=== PATIENT | female | born 1970 | race Caucasian/White ===

== ENCOUNTER 2021-02-26 12:30 | Outpatient (CLI) | payer BC, SELFPAY ==
--- NOTE | 2021-02-26 | ECHO_ITS ---
Patient Info Name: Karina Chavez Age: 51 years : 1970 Gender: Female Ht: 64 in Wt: 157 lbs BSA: 1.81 m2 HR: 77 bpm BP: 168 / 110 mmHg Exam Date: 02/26/2021 1:15 PM Exam Location: [facility] Pulmonary Patient Status: Outpatient Admit Date: 02/26/2021 Staff Ordering Physician: Heath, Bernie SERNA [employer] Strand: George Gil, BEAR, RT Attending Provider: HeathBernie NP Exam Type: CA echo doppler color flow Study Info Indications R00.2 - Palpitations Complete two-dimensional, color flow and Doppler transthoracic echocardiogram is performed. Strain analysis performed. Summary 1. Complete two-dimensional, color flow and Doppler transthoracic echocardiogram is performed. 2. Left ventricular systolic function is normal, estimated at 60-65%. 3. There is mildly increased left ventricular wall thickness. 4. The left ventricular diastolic function is normal. Left Ventricle Left ventricular chamber dimension is normal. Left ventricular systolic function is normal, estimated at 60-65%. There is mildly increased left ventricular wall thickness. Left ventricular septal wall motion is normal. The left ventricular diastolic function is normal. Global longitudinal strain is normal at -17 %. Right Ventricle Right ventricular chamber dimension is normal. Right ventricular systolic function is normal. Left Atria Left atrial chamber dimension is normal. Right Atria Right atrial chamber dimension is normal. Atrial Septum Intact interatrial septum visualized by color flow imaging. Aortic Valve The aortic valve is trileaflet. There is no aortic valve sclerosis. There is no aortic valve stenosis. There is no aortic valve regurgitation. Pulmonic Valve The pulmonic valve is normal. There is no pulmonic valve stenosis. There is no pulmonic regurgitation. Mitral Valve The mitral valve has normal leaflets. There is no mitral valve stenosis. There is no mitral valve regurgitation. Tricuspid Valve The tricuspid valve leaflets are normal. There is no significant tricuspid valve stenosis. There is no tricuspid valve regurgitation. Pericardium/Pleural The pericardium appears normal. There is no pericardial effusion. Inferior Vena Cava Normal inferior vena cava with <50% collapse upon inspiration consistent with elevated right atrial pressure, 10 mmHg. Aorta The aortic root size at the sinus of Valsalva is normal. The prox ascending aorta size is normal. Left Ventricular Outflow Tract Name Value Normal LVOT 2D LVOT Diameter 2.0 cm LVOT Doppler LVOT Peak Gradient 4 mmHg LVOT Mean Gradient 2 mmHg LVOT VTI 19 cm LVOT VTI/AV VTI Ratio 0.7 LVOT Stroke Volume 58 ml LVOT CO 4.0 l/min LVOT CI 2.2 l/min/m2 Mitral Valve Name Value Normal
== END 2021-02-26 12:31 | disposition home or self-care (01) ==
LOC: ANHCARD 12:39
PROVIDERS: PCP Nurse Practitioner Adult Health; Visit Provider Nurse Practitioner Adult Health
DX: R00.2 Palpitations (principal)
CPT/HCPCS: 93306

== ENCOUNTER 2021-04-16 08:06 | Outpatient (CLI) | payer BC, SELFPAY ==
--- NOTE | 2021-04-16 13:22 | WPDSIXMINUTE ---
Six Minute Walk Procedure Procedure Performed Pulmonary Stress Test (6 min walk) Six Minute Walk This is a 6 minute walk test. The test was performed and interpreted in accordance with the 2014 ERS/ATS task force guidelines. Findings: The patient's resting room air oxygen saturation measured by pulse oximetry was 93% and heart rate was 98 bpm. Patient ambulated for 610 meters and oxygen saturation remained 95 to 98%. Heart rate at the end of the study was 132 bpm. The patient did not qualify for supplemental oxygen at rest or with ambulation. There are no prior studies for comparison.
--- NOTE | 2021-04-16 13:26 | WPDPFTINT ---
PFT Procedure Performed PFT Procedure Performed Spirometry with Pre/Post Bronchodilator Plethysmography (Lung Vol) Diffusing Cap (DLCO) Flow Vol Loop PFT Interpretation This is a pulmonary function test with pre and post-bronchodilator spirometry, plethysmography and diffusing capacity. The test was performed and results interpreted in accordance with the 2019 and 2005 ATS/ERS Task Force guidelines respectively using the Global Lung Function Initiative-2012 reference equations. Patient demonstrated good effort and cooperation. Reproducibility criteria were met. The quality of the pre bronchodilator spirometry maneuver was Grade B and post bronchodilator spirometry maneuver was Grade B. Findings: Spirometry: The contour the inspiratory and expiratory flow tracing are normal. The pre bronchodilator FVC is 3.10 L, 90% predicted. The pre bronchodilator FEV1 is 2.56 L, 94% predicted. The FEV1: FVC ratio was 83%. The post bronchodilator FVC is 3.06 L, representing 1% decrease. The post bronchodilator FEV1 is 2.57 L, representing 1% increase. The post bronchodilator FEV1: FVC ratio was 84%. Plethysmography: The total lung capacity is 4.48 L, 88% predicted. Functional residual capacity is 1.86 L, 65% predicted. The residual volume is 1.39 L, 76% predicted. Diffusing capacity: The diffusion capacity unadjusted for hemoglobin is 14.2, 63% predicted. The diffusing capacity adjusted for alveolar volume is 3.79, 83% predicted. Impression: The spirometry is normal without evidence of an obstructive abnormality. There is no significant improvement after inhaling a single dose of albuterol. The lung volumes are normal. The diffusing capacity unadjusted for hemoglobin is mildly decreased and normalizes when adjusted for alveolar volume. There are no prior studies for comparison
== END 2021-04-16 08:07 | disposition home or self-care (01) ==
LOC: ANHPFT 08:07
PROVIDERS: PCP Nurse Practitioner Adult Health; Visit Provider Nurse Practitioner
DX: Z86.16 Personal history of COVID-19 (principal)
CPT/HCPCS: 94060; 94618; 94726; 94729

== ENCOUNTER 2021-05-01 14:51 | Outpatient (CLI) | payer BC, SELFPAY ==
--- NOTE | ~2021-05-01 | CT_ITS ---
EXAMINATION: CTA chest PE protocol DATE: 05/01/2021 15:28 INDICATION: Shortness of breath. TECHNIQUE: Computed tomography angiography (CTA) of the chest was performed with 100 mL Omnipaque-350 intravenous contrast timed to evaluate the pulmonary arteries. Coronal maximum intensity projection 3D-reconstructions were created by the technologist. Automated exposure control and iterative reconst ruction technique were employed. The dose-length product was 282.66 mGy-cm. COMPARISON: None. FINDINGS: The lung volumes are small. There are patchy groundglass opacities in all lobes. There is m ild atelectasis in the lower lobes. A calcified right lung nodule is consistent with old granulomatou s disease. No pleural effusion. The heart size is normal. No pericardial effusion. There is no pulmon masoud embolus. There is mild thoracic spondylosis. There is a benign bone island in T6 vertebral body. IMPRESSION: 1. No pulmonary embolus. 2. Diffuse lung disease, which may be atypical pneumonia such as COVID-19 pneumonia. The differential diagnosis includes nonspecific interstitial pneumonia (NSIP) and hypersensitivity pneumonitis. Reviewed, dictated and finalized at location A. [place] LAYER IMPRESSION: 1. No pulmonary embolus. 2. Diffuse lung disease, which may be atypical pneumonia such as COVID-19 pneum onia. The differential diagnosis includes nonspecific interstitial pneumonia (N SIP) and hypersensitivity pneumonitis.
[2021-05-01 15:21] LABS: Estimated Glomerular Filt Rate > 60
== END 2021-05-01 14:52 | disposition home or self-care (01) ==
LOC: ANHIMG 14:54
PROVIDERS: PCP Nurse Practitioner Adult Health; Visit Provider Nurse Practitioner
DX: R79.1 Abnormal coagulation profile (principal); J98.4 Other disorders of lung
CPT/HCPCS: 71275; Q9967

== ENCOUNTER 2021-08-17 02:42 | Day surgery (SDC) | payer BC, SELFPAY ==
[2021-07-31 12:16] VITALS: BMI 26.6
--- NOTE | 2021-08-17 11:14 | P.PNAN_ITS ---
Anes - Initial Pre Proc Eval Procedure: Operation Date: 08/17/21 13:30 Proposed Procedures p Esophagogastroduodenoscopy & Screening Colonoscopy - Dimitri Oconnor MD Date/Time: 08/17/21 11:14 Surgeon: Dimitri Barrientos MD Pre Op Diagnosis: neoplasm screening, peptic ulcer disease Patient Data Age: 51 Gender: F Height: 1.63 m Weight: 71.7 kg Allergies Allergy/AdvReac Type Severity Reaction Status Date / Time No Known Allergies Allergy Verified 08/19/21 10:49 Home Medications Medication Instructions Recorded Confirmed Type atorvastatin 40 mg tablet 40 mg PO DAILY 07/31/21 07/31/21 History levonorgestrel 0.15 mg-ethinyl 1 ea PO DAILY 07/31/21 07/31/21 History estradiol 30 mcg tablets,3 mos pack(91) lisinopril 20 mg tablet 20 mg PO DAILY 07/31/21 07/31/21 History metformin 500 mg tablet 500 mg PO BID 07/31/21 07/31/21 History metoprolol tartrate 25 mg tablet 25 mg PO DAILY 07/31/21 08/17/21 History omeprazole 40 mg capsule,delayed 40 mg PO DAILY 07/31/21 07/31/21 History release semaglutide 3 mg tablet (Rybelsus) 3 mg PO DAILY 07/31/21 07/31/21 History erythromycin 500 mg tablet See Rx Instructions .Route 08/19/21 Rx .COMPLEX #6 tabs neomycin 500 mg tablet See Rx Instructions .Route 08/19/21 Rx .COMPLEX #6 tabs Patient hx anesthesia problems: none Family hx anesthesia problems: none Results Review: All pre-operative results and documents have been reviewed as part of the pre- operative evaluation. 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 Informed Consent: The patient's anesthetic plan and its attendant risks and benefits were discussed with the patient/family/POA. Questions were solicited and answers provided to the satisfaction of the patient/family/POA.
[2021-08-17] MEDS: LACTATED RINGERS 1,000 ML 150 ML IV CONT (11:22)
[2021-08-17 11:23] VITALS: BP 145/80; PULSE 92; RESP 18; TEMP 36.4; O2SAT 100
[2021-08-17 11:23] LABS: Glucose Point of Care 128 mg/dl (65-105)
--- NOTE | 2021-08-17 11:49 | PM.HPGS ---
History of Present Illness History of Present Illness Consent: Risks, benefits, and alternatives have been discussed and questions answered. Patient agrees to proceed with procedure. Chief complaint: neoplasm screening, peptic ulcer disease Narrative: Karina Chavez is a 51 year old female who had bleeding ulcer last year when she was in the ventilator because of COVID, using omeprazole daily and denies any bleeding. She also will have her first screening colonoscopy Review of Systems Constitutional: Constitutional: Denies headache(s) and Denies weakness Eyes: Eyes: Denies blurry vision ENT: Reports Normal hearing present, Denies headache(s) and Denies neck pain Cardiovascular: Cardiovascular: Denies chest pain and Denies dyspnea Respiratory: Respiratory: Denies dyspnea Gastrointestinal: Gastrointestinal: Reports no additional gastrointestinal complaints Genitourinary: Genitourinary: Denies dysuria Musculoskeletal: Musculoskeletal: Denies neck pain Integumentary/Breasts: Skin/Breast: Denies dry skin Neurologic: Reports Normal hearing present, Denies headache(s) and Denies weakness Psychiatric: Psychiatric: Denies anxiety Endocrine: Endocrine: Denies change in body appearance Hematologic/Lymphatic: Hematologic/Lymphatic: Denies easy bleeding Allergic/Immunologic: Allergic/Immunologic: Denies urticaria PMFSH Past Medical History Medical History (Updated 08/17/21 @ 11:50 by Dimitri Barrientos MD) Colon cancer screening Diabetes type 2, controlled Hyperlipidemia Hypertension Migraine Peptic ulcer disease Social History Social History Smoking status: Never smoker Substance use: never Living arrangements: alone Spiritual care concerns: No Meds Home Medications and Allergies Home Medications Medication Instructions Recorded Confirmed Type atorvastatin 40 mg tablet 40 mg PO DAILY 07/31/21 07/31/21 History levonorgestrel 0.15 mg-ethinyl 1 ea PO DAILY 07/31/21 07/31/21 History estradiol 30 mcg tablets,3 mos pack(91) lisinopril 20 mg tablet 20 mg PO DAILY 07/31/21 07/31/21 History metformin 500 mg tablet 500 mg PO BID 07/31/21 07/31/21 History metoprolol tartrate 25 mg tablet 25 mg PO DAILY 07/31/21 08/17/21 History omeprazole 40 mg capsule,delayed 40 mg PO DAILY 07/31/21 07/31/21 History release semaglutide 3 mg tablet (Rybelsus) 3 mg PO DAILY 07/31/21 07/31/21 History Allergies Allergy/AdvReac Type Severity Reaction Status Date / Time No Known Allergies Allergy Verified 07/31/21 12:10 Vital Signs Vital Signs - 24 hr 08/17/21 11:23 Temperature 97.6 F Pulse Rate 92 Respiratory Rate 18 Blood Pressure 145/80 H Pulse Oximetry 100 Oxygen Delivery Room Air Exam Const: General: comfortable and no acute distress HENMT: General nose exam: Normal nares present Eyes: General: appearance normal, both eyes and all related structures Neck: Neck: no JVD Resp: Auscultation: clear to auscultation bilaterally Cardio: Rate: regular rate Rhythm: regular rhythm GI: Inspection: non-distended GI Palp: Yes Soft to palpation Skin: General skin exam: normal color Neuro: General: gait normal Speech: normal speech Extrem: General: normal to inspection Psych: Mental Status: mental status grossly normal Assessment and Plan Assessment and plan (1) Peptic ulcer disease: Code(s): K27.9 - Peptic ulcer, site unspecified, unspecified as acute or chronic, without hemorrhage or perforation Status: Acute Assessment and Plan: egd with bx, already on ppi (2) Colon cancer screening: Code(s): Z12.11 - Encounter for screening for malignant neoplasm of colon Status: Acute Assessment and Plan: colonoscopy
--- NOTE | 2021-08-17 12:03 | SUR.OPER ---
EGD start 1156 end 1159 Colon start 1203 end 1216.
[2021-08-17 12:22] VITALS: BP 114/69; PULSE 84; RESP 22; O2SAT 100
[2021-08-17 12:32] VITALS: BP 133/83; PULSE 76; RESP 20; O2SAT 100
[2021-08-17 12:42] VITALS: BP 143/90; PULSE 70; RESP 22; O2SAT 100
== END 2021-08-17 13:02 | disposition home or self-care (01) ==
PROVIDERS: PCP Nurse Practitioner Adult Health; Visit Provider Internal Medicine Gastroenterology
PROC: 0DJ08ZZ Inspection of Upper Intestinal Tract, Via Natural or Artificial Opening Endoscopic (ICD-10-PCS; CPT 43235; principal; 2021-08-17 13:30)
DX: Z12.11 Encounter for screening for malignant neoplasm of colon (principal); D12.2 Benign neoplasm of ascending colon; D12.3 Benign neoplasm of transverse colon; Z87.11 Personal history of peptic ulcer disease; K57.30 Diverticulosis of large intestine without perforation or abscess without bleeding; K64.8 Other hemorrhoids; K29.50 Unspecified chronic gastritis without bleeding; E11.9 Type 2 diabetes mellitus without complications; I10 Essential (primary) hypertension; E78.5 Hyperlipidemia, unspecified; Z79.84 Long term (current) use of oral hypoglycemic drugs
CPT/HCPCS: 45385; 45380; 45381; 43239; 82948; 88305; J2704; J7120

== ENCOUNTER 2021-11-17 08:00 | Outpatient (NON) | payer BC, SELFPAY | END 2021-11-17 08:01 | disposition home or self-care (01) | LOC: ANHLAB 11-18 13:08 | PROVIDERS: PCP Nurse Practitioner Adult Health; Visit Provider Surgery Plastic and Reconstructive Surgery | DX: D49.2 Neoplasm of unspecified behavior of bone, soft tissue, and skin (principal); R22.9 Localized swelling, mass and lump, unspecified | CPT/HCPCS: 88304; 88305; 88342 ==

== ENCOUNTER 2022-11-23 07:11 | Outpatient (CLI) | payer BC, SELFPAY ==
[2022-11-23 18:42] LABS: Alanine Aminotransferase 37 U/L (6-35); Albumin Level 4.2 g/dL (3.5-5.1); Alkaline Phosphatase 74 U/L (38-126); Anion Gap 8 mmol/L (8-16); Aspartate Amino Transferase 68 U/L (14-36); Bilirubin,Total 0.5 mg/dL (0.2-1.3); Blood Urea Nitrogen 12 mg/dL (7-17); Carbon Dioxide 27 mmol/L (22-30); Chloride 106 mmol/L (98-107); Cholesterol 118 mg/dL (0-200); Estimated Glomerular Filt Rate > 60; Glucose 99 mg/dL (65-110); HDL Direct 41 mg/dL; Potassium 4.1 mmol/L (3.4-5.0); Sodium 141 mmol/L (137-145); Triglycerides 157 mg/dL (<150)
[2022-11-23 18:53] LABS: LDL Cholesterol Direct 50 mg/dL
[2022-11-23 19:33] LABS: Hemoglobin A1C 6.1 % (<5.7)
[2022-11-23 19:43] LABS: Vitamin D 25 Hydroxy 45.4 ng/mL
[2022-11-23 20:11] LABS: MALB Creatinine Ratio 153.3 mg/g (0-30)
== END 2022-11-23 07:12 | disposition home or self-care (01) ==
LOC: ANHBWCLAB 07:13
PROVIDERS: PCP Nurse Practitioner Adult Health; Visit Provider Nurse Practitioner Adult Health
DX: E11.9 Type 2 diabetes mellitus without complications (principal); E55.9 Vitamin D deficiency, unspecified
CPT/HCPCS: 36415; 80053; 80061; 82043; 82306; 83036

== ENCOUNTER 2023-06-09 08:22 | Outpatient (CLI) | payer BC, SELFPAY ==
[2023-06-09 18:38] LABS: Hematocrit 40.1 % (37.0-47.0); Hemoglobin 11.9 g/dL (12.0-15.0); Mean Corpuscular HGB Conc 29.7 g/dl (32-36); Mean Corpuscular Hemoglobin 25.4 pg (26-34); Mean Corpuscular Volume 85.5 fl (80-100); Mean Platelet Volume 11.7 fl (7.4-10.4); Platelet Count Result 302 k/mm3 (150-375); Red Blood Count 4.69 M/mm3 (4.2-5.4); Red Cell Distribution Width 20.9 % (11.5-14.5); White Blood Count 7.6 K/mm3 (4.5-10.0)
[2023-06-09 19:12] LABS: Alanine Aminotransferase 33 U/L (6-35); Albumin Level 4.4 g/dL (3.5-5.1); Alkaline Phosphatase 91 U/L (38-126); Anion Gap 8 mmol/L (4-12); Aspartate Amino Transferase 53 U/L (14-36); Bilirubin,Total 0.6 mg/dL (0.2-1.3); Blood Urea Nitrogen 17 mg/dL (7-17); Calcium 9.5 mg/dL (8.4-10.2); Carbon Dioxide 24 mmol/L (22-30); Chloride 106 mmol/L (98-107); Cholesterol 147 mg/dL (0-200); Estimated Glomerular Filt Rate > 60; Glucose 101 mg/dL (65-110); HDL Direct 48 mg/dL; Potassium 4.3 mmol/L (3.4-5.0); Sodium 138 mmol/L (137-145); Triglycerides 150 mg/dL (<150)
[2023-06-09 19:23] LABS: LDL Cholesterol Direct 75 mg/dL
[2023-06-09 20:01] LABS: Vitamin D 25 Hydroxy 43.7 ng/mL
[2023-06-09 21:18] LABS: Creatinine Urine 185.1 mg/dL
[2023-06-09 21:20] LABS: MALB Creatinine Ratio 16.4 mg/g (0-30); Microalbumin Urine Random 30.3 mg/L (0-16.7)
== END 2023-06-09 08:23 | disposition home or self-care (01) ==
LOC: ANHBWCLAB 08:23
PROVIDERS: PCP Nurse Practitioner Adult Health; Visit Provider Nurse Practitioner Adult Health
DX: E11.9 Type 2 diabetes mellitus without complications (principal); E55.9 Vitamin D deficiency, unspecified
CPT/HCPCS: 36415; 80053; 80061; 82043; 82306; 83036; 85027

== ENCOUNTER 2023-12-13 08:04 | Outpatient (CLI) | payer BC, SELFPAY ==
[2023-12-13 19:32] LABS: Alanine Aminotransferase 40 U/L (6-35); Albumin Level 4.8 g/dL (3.5-5.1); Alkaline Phosphatase 98 U/L (38-126); Anion Gap 12 mmol/L (4-12); Aspartate Amino Transferase 64 U/L (14-36); Bilirubin,Total 0.7 mg/dL (0.2-1.3); Blood Urea Nitrogen 14 mg/dL (7-17); Carbon Dioxide 26 mmol/L (22-30); Chloride 102 mmol/L (98-107); Cholesterol 187 mg/dL (0-200); Estimated Glomerular Filt Rate > 60; Glucose 78 mg/dL (65-110); HDL Direct 59 mg/dL; Potassium 3.8 mmol/L (3.4-5.0); Sodium 140 mmol/L (137-145); Triglycerides 131 mg/dL (<150)
[2023-12-13 19:40] LABS: Vitamin D 25 Hydroxy 73.5 ng/mL
[2023-12-13 19:42] LABS: LDL Cholesterol Direct 81 mg/dL
[2023-12-13 20:17] LABS: Creatinine Urine 184.4 mg/dL
[2023-12-13 20:19] LABS: MALB Creatinine Ratio 7.6 mg/g (0-30); Microalbumin Urine Random 14.1 mg/L (0-16.7)
[2023-12-13 21:13] LABS: Hemoglobin A1C 5.9 % (<5.7)
== END 2023-12-13 08:05 | disposition home or self-care (01) ==
LOC: ANHBWCLAB 08:13
PROVIDERS: PCP Nurse Practitioner Adult Health; Visit Provider Nurse Practitioner Adult Health
DX: E11.9 Type 2 diabetes mellitus without complications (principal); E55.9 Vitamin D deficiency, unspecified
CPT/HCPCS: 36415; 80053; 80061; 82043; 82306; 82565; 83036

== ENCOUNTER 2024-02-27 00:21 | Day surgery (SDC) | payer BC, SELFPAY ==
[2024-02-10 11:59] VITALS: BMI 24.0
[2024-02-27 06:22] VITALS: BP 110/61; PULSE 102; RESP 16; TEMP 36.3; O2SAT 100
[2024-02-27] MEDS: LACTATED RINGERS 1,000 ML 150 ML IV CONT (06:32)
[2024-02-27 06:33] LABS: Glucose Point of Care 101 mg/dl (65-105)
--- NOTE | 2024-02-27 07:19 | WPDANESEPPF ---
Anes - Initial Pre Proc Eval Procedure: Operation Date: 02/27/24 07:30 Proposed Procedures p Screening Colonoscopy - Jose Trores DO Date/Time: 02/27/24 07:19 Surgeon: Jose Torres DO Pre Op Diagnosis: Screening for malignant neoplasm of colon Patient Data Age: 54 Gender: F Height: 1.63 m Weight: 62.7 kg Last Vital Signs Temp 36.3 C L 02/27/24 06:22 Pulse 102 H 02/27/24 06:22 Resp 16 02/27/24 06:22 BP 110/61 02/27/24 06:22 Pulse Ox 100 02/27/24 06:22 O2 Del Method Room Air 02/27/24 06:22 Allergies Allergy/AdvReac Type Severity Reaction Status Date / Time No Known Allergies Allergy Verified 02/27/24 06:18 Home Medications ?Medication ?Instructions ?Recorded ?Confirmed ?Type FreeStyle Lucrecia 2 sensors 09/02/22 02/10/24 History atorvastatin 40 mg tablet 40 mg PO DAILY #90 tabs 07/13/23 02/27/24 Rx metformin 500 mg tablet 500 mg PO BID #180 tabs 09/12/23 02/27/24 Rx tirzepatide 7.5 mg/0.5 mL 7.5 mg (0.5 mL) subcut WEEKLY #6 mL 09/19/23 02/27/24 Rx subcutaneous pen injector (Mounjaro) metoprolol tartrate 25 mg tablet 12.5 mg PO DAILY 12/13/23 02/27/24 History cholecalciferol (vitamin D3) 1,250 1,250 mcg PO WEEKLY #12 caps 01/17/24 02/27/24 Rx mcg (50,000 unit) capsule lisinopril 5 mg tablet See Rx Instructions .Route 02/20/24 02/27/24 Rx .COMPLEX #90 tabs Laboratory Tests 02/27/24 06:31 POC Capillary Glucose 101 mg/dl (65-105) Patient hx anesthesia problems: none Family hx anesthesia problems: none Results Review: All pre-operative results and documents have been reviewed as part of the pre-operative evaluation. [facility] Past Medical History Medical History (Updated 06/09/23 @ 08:23 by Bernie Joe APRN) Adenomatous colon polyp Colon cancer screening Peptic ulcer disease Migraine Diabetes type 2, controlled Hyperlipidemia Hypertension Surgical History Surgical History Hx of colonoscopy 08/17/2021 Family History Family History (Updated 09/02/22 @ 15:13 by Alva Peterson MA) Father Hypertension Heart disease Grandparent Heart disease Social History Social History (Updated 09/02/22 @ 15:13 by Alva Peterson MA) Smoking status: Never smoker Alcohol intake: current Alcohol use details: very rarely Substance use: never Substance use type: does not use Lack of Transportation: No Lack of Food: Never True Current Housing: I Have Housing Concerned About Future Housing: No Difficulty Paying Gas/Electric Bills: No Difficulty Paying for Meds: No Currently Unemployed: No Education: Associate Degree Difficulty w/ Childcare or Family Care: No Living arrangements: alone 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 Gender identity (if verbalized by the patient): Female Spiritual care concerns: No Agree to blood products: Yes Anes - Eval Final PreProcedure Day of Procedure 02/27/24 07:19 Patient weight: normal Heart: regular rate and rhythm Lungs: clear to auscultation and normal air movement Airway: Mallampati scale class II Neurological: alert and oriented Last oral intake: >/= 8 hours ASA classification: III Emergent: no Anesthetic plan: proceed Anesthesia type and monitoring: general GIVS and standard monitoring Results Review: All pre-operative results and documents have been reviewed as part of the pre-operative evaluation. Informed Consent: The patient's anesthetic plan and its attendant risks and benefits were discussed with the patient/family/POA. Questions were solicited and answers provided to the satisfaction of the patient/family/POA.
--- NOTE | 2024-02-27 07:28 | P.HP_ITS ---
H&P: HPI History of Present Illness Date/Time: 02/27/24 07:28 Chief Complaint: History of colon polyps Narrative: this is a 54-year-old woman who presents for colonoscopy. Her last colonoscopy was 1 year ago and was normal. She has a history of a large polyp 2 years ago that required a transverse colon resection. She denies any hematochezia or melena. She denies family history of colon cancer. Review of Systems Review of Systems: All systems reviewed & are unremarkable except as noted in HPI and below Constitutional: Constitutional: Denies chills, Denies fever(s), Denies headache(s) and Denies weight loss Eyes: Eyes: Denies change in vision ENT: Denies dizziness, Denies headache(s), Denies neck mass and Denies throat swelling Cardiovascular: Cardiovascular: Denies chest pain, Denies lightheadedness and Denies dyspnea Respiratory: Respiratory: Denies cough, Denies dyspnea and Denies wheezing Gastrointestinal: Gastrointestinal: Denies abdominal pain, Denies change in bowel habits, Denies nausea and Denies vomiting Genitourinary: Genitourinary: Denies hematuria and Denies dysuria Musculoskeletal: Musculoskeletal: Reports as per HPI Integumentary/Breasts: Skin/Breast: Reports as per HPI Neurologic: Denies dizziness and Denies headache(s) Allergic/Immunologic: Allergic/Immunologic: Denies throat swelling and Denies wheezing [facility] Past Medical History Medical History (Updated 02/27/24 @ 07:29 by Jose Torres DO) Adenomatous colon polyp Colon cancer screening Peptic ulcer disease Migraine Diabetes type 2, controlled Hyperlipidemia Hypertension Surgical History Surgical History Hx of colonoscopy 08/17/2021 Family History Family History (Updated 09/02/22 @ 15:13 by Alva Peterson MA) Father Hypertension Heart disease Grandparent Heart disease Social History Social History (Updated 09/02/22 @ 15:13 by Alva Peterson MA) Smoking status: Never smoker Alcohol intake: current Alcohol use details: very rarely Substance use: never Substance use type: does not use Lack of Transportation: No Lack of Food: Never True Current Housing: I Have Housing Concerned About Future Housing: No Difficulty Paying Gas/Electric Bills: No Difficulty Paying for Meds: No Currently Unemployed: No Education: Associate Degree Difficulty w/ Childcare or Family Care: No Living arrangements: alone 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 Gender identity (if verbalized by the patient): Female Spiritual care concerns: No Agree to blood products: Yes Meds Home Medications and Allergies Home Medications ?Medication ?Instructions ?Recorded ?Confirmed ?Type Derek Singer 2 sensors 09/02/22 02/10/24 History atorvastatin 40 mg tablet 40 mg PO DAILY #90 tabs 07/13/23 02/27/24 Rx metformin 500 mg tablet 500 mg PO BID #180 tabs 09/12/23 02/27/24 Rx tirzepatide 7.5 mg/0.5 mL 7.5 mg (0.5 mL) subcut WEEKLY #6 mL 09/19/23 02/27/24 Rx subcutaneous pen injector (Mounjaro) metoprolol tartrate 25 mg tablet 12.5 mg PO DAILY 12/13/23 02/27/24 History cholecalciferol (vitamin D3) 1,250 1,250 mcg PO WEEKLY #12 caps 01/17/24 02/27/24 Rx mcg (50,000 unit) capsule lisinopril 5 mg tablet See Rx Instructions .Route 02/20/24 02/27/24 Rx .COMPLEX #90 tabs Allergies Allergy/AdvReac Type Severity Reaction Status Date / Time No Known Allergies Allergy Verified 02/27/24 06:18 Vital Signs Vital Signs - 24 hr 02/27/24 06:22 Temperature 97.3 F L Pulse Rate 102 H Respiratory Rate 16 Blood Pressure 110/61 Pulse Oximetry 100 Oxygen Delivery Room Air Exam Const: General: no acute distress and alert Orientation/consciousness: patient oriented x3 HENMT: Head: normocephalic and atraumatic Ears: hearing grossly normal bilaterally Face/Nose/Sinus: Normal nares present Mouth: Yes Normal oral and palatal mucosa present Eyes: Periorbital: periorbital findings normal Sclera: sclerae normal EOM: EOMs intact bilaterally Neck: Neck: normal visual inspection, no lymphadenopathy and trachea midline Chest: Chest palpation & inspection: normal inspection of the chest Resp: Effort & Inspection: normal respiratory effort Auscultation: clear to auscultation bilaterally Cardio: Jugular venous distension: no JVD Rate: regular rate Rhythm: regular rhythm Heart sounds: S1 normal heart sound present and S2 normal heart sound present Peripheral pulses: Peripheral pulses 2+ throughout GI: Inspection: normal to inspection GI Palp: Yes Soft to palpation, No Tenderness to palpation present (GI), No Guarding due to palpation present (GI) and No Rebound tenderness present Percussion: Yes normal to percussion Auscultation: normal bowel sounds : General: Yes no CVA tenderness Back/Spine/Pelvis: Back: no CVA tenderness Neuro: General: patient oriented x3, no focal motor deficits and CN's II-XI intact bilaterally Cognition (Neuro): normal cognition Speech: normal speech Motor exam (neuro): 5/5 motor strength present throughout Extrem: General: capillary refill normal and no clubbing, cyanosis or edema Assessment and Plan Assessment and plan (1) Adenomatous colon polyp: Qualifiers: Colon location: transverse Qualified Code(s): D12.3 - Benign neoplasm of transverse colon Code(s): D12.6 - Benign neoplasm of colon, unspecified Status: Acute Assessment and Plan: I have recommended colonoscopy. I have discussed the procedure, risks, benefits, and alternatives. Questions were answered. Patient is agreeable to proceed.
[2024-02-27 07:45] VITALS: BP 107/58; PULSE 93; RESP 18; O2SAT 100
[2024-02-27 07:55] VITALS: BP 103/56; PULSE 92; RESP 18; O2SAT 100
[2024-02-27 08:03] LABS: Glucose Point of Care 86 mg/dl (65-105)
[2024-02-27 08:05] VITALS: BP 114/68; PULSE 81; RESP 18; O2SAT 100
== END 2024-02-27 08:16 | disposition home or self-care (01) ==
PROVIDERS: PCP Nurse Practitioner Adult Health; Visit Provider Surgery
PROC: 0DJD8ZZ Inspection of Lower Intestinal Tract, Via Natural or Artificial Opening Endoscopic (ICD-10-PCS; CPT 45378; principal; 2024-02-27 07:30)
DX: Z09 Encounter for follow-up examination after completed treatment for conditions other than malignant neoplasm (principal); K57.30 Diverticulosis of large intestine without perforation or abscess without bleeding; E11.9 Type 2 diabetes mellitus without complications; E78.5 Hyperlipidemia, unspecified; I10 Essential (primary) hypertension; Z79.84 Long term (current) use of oral hypoglycemic drugs; Z79.85 Long-term (current) use of injectable non-insulin antidiabetic drugs; Z90.49 Acquired absence of other specified parts of digestive tract; Z86.0100 Personal history of colon polyps, unspecified; Z82.49 Family history of ischemic heart disease and other diseases of the circulatory system
CPT/HCPCS: 45378; 82948; J2003; J2704; J7120

== ENCOUNTER 2024-05-14 07:28 | Outpatient (CLI) | payer BC, SELFPAY ==
--- NOTE | ~2024-05-14 | MM_ITS ---
EXAMINATION: MM screening hyun BI w billie HISTORY: Screening TECHNIQUE: Craniocaudal and mediolateral oblique 3-D tomosynthesis images were obtained and synthetic 2-D images were generated. CAD analysis was submitted and interpreted. COMPARISON: No prior mammogram is available for comparison at this institution. BREAST PARENCHYMAL COMPOSITION: Not dense: There are scattered areas of fibroglandular density. FINDINGS: There is no evidence of suspicious mass, calcification, or architectural distortion to sugg est malignancy in either breast. There has been no suspicious interval change. IMPRESSION: 1. No mammographic evidence of malignancy. 2. Recommend routine screening mammography in one year. BI-RADS Category 1: Negative Reviewed, dictated and finalized at location B.
--- OUTSIDE RECORDS SUMMARY | 2024-05-14 07:33 | XMS_ITS | Data Portability ---
Author Organization Marc Murrieta L LC ([facility]) Address [address] [address] Assessment Encounter Date Assessment Date Assessment LastModified by Organization Details LastModified Time 04/24/2024 04/24/2024 Assessment: The patient is due for a hemoglobin A1C test for assessment of glycemic control and ongoing diabetes management. The patient will benefit from hemoglobin A1C monitoring every 3 months. Plan: Order placed for an A1C test kit to be mailed to the patients' home. Once resulted, the hemoglobin A1C will be reviewed by a physician and shared with the patient via the patient portal. [email or web address] Not available 04/24/2024 09:17:16 Plan of Treatment Reminders Order Date Submit Date Provider Last Modified By Organization Details Last Modified Time Details Appointments None recorded. Lab hemoglobin A1C, fingerstic k 2024 025 [email or web address] [facility], [address] [place] [address], [address], 09:17:49 Referral None recorded. Procedures None recorded. Surgeries None recorded. Imaging None recorded. Medication Orders None recorded. Patient TargetsNo targets recorded. Patient Instructions Encounter Date Encounter Id Patient Instructions Last Modified By Organization Details Last Modified Time 04/24/2024 [id number] I have ordered your at-home A1C kit and it will be delivered directly to your home. Please follow the instructions included with the test kit to complete it. I will receive a copy of your results for review. You will be able to view your test results and my notes in the [facility] patient portal. [email or web address] Not available 04/24/2024 09:17:16 Reason for Referral None Reported. Medical Equipment None Reported. Vitals None Recorded Social History None recorded. Functional Status None recorded. Mental Status None recorded. Family History Nothing Reported. Medical History No medical history recorded. Gynecological HistoryNo gynecological history recorded. Obstetrics History GPAL:G 0 P 0 0 0 0 Past Encounters Encounter ID Performer Location Encounter Start Date Encounter Closed Date Diagnosis/Indication Diagnosis SNOMED-CT Code Diagnosis ICD10 Code Diagnosis Note [id number] ROCKY CHOW MD MAIN OFFICE -- [employer] [address] [address] 04/24/2024 09:17:10 04/24/2024 09:31:26 Type 2 diabetes mellitus 36816548 E11.9 Health Concerns Section Related Observation LastModified by Organization Detai ls LastModified Time None Recorded Concern Status LastModified by Organization Details LastModified Time None Recorded Advance Directives Directive None Recorded Payers Encounter Date Sequence Insurance Name Policy Number Policy Polo Covered Member ID Polo Member ID Guarantor Name 04/24/2024 1 Glad to Have You Karina Chavez [id number] Karina Chavez Notes Date Note Type Note Provider Name and Address Organization Details Recorded Time 04/24/2024 text/html Patient case was reviewed and linked to this encounter under Documents for Discussion. The patient is a {{PATIENTAGE 54#} } year old {{man woman*}} with {{type 2* type 1}} diabetes who is due for a hemoglobin A1c test. ROCKY CHOW MD [address] [place] [address],[address], [place], [address], [facility] - [employer] 04/24/2024 09:17:51 OBGyn Episode No OBEpisode recorded.
--- OUTSIDE RECORDS SUMMARY | 2024-05-14 07:33 | XMS_ITS | Clinical Summary ---
Author Organization [facility] Address [address] [facility] [place] [address] Care Team Providers Care Hot Wire Glass Tube Cutter Name Role Phone Ronda Ramachandran MD Unavailable [phone] Bernie JoeOTR REFRIGERATED CDL TRUCK DRIVER Primary Care Provider + Source Comments [facility],non-owned Affiliates and Associated Physician Practices is amultiple site organization consisting of ambulatory clinics and hospital sitesin [place], [place], [place] and [place]. This disclosure is being madepursuant to the Care Everywhere program and may not contain all information available regarding this patient. Last updated 17.[facility] Allergies No known active allergies Medications * Be aware that medications may not be up to date on this document. Alwaysverify current medications with the patient. Medication Sig Dispensed Refills Start Date End Date Status lisinopril (PRINIVIL; ZESTRIL) 20 MG tablet Take 20 mg by mouth once daily Active OtherIndications:mayte h control Reasons: control Active atorvastatin (LIPITOR) 40 MG tablet TAKE 1 TABLET DAILY 12/31/2019 Active ONETOUCH VERIO test strip 03/21/2019 Active levonorgestrel-ethiny l estradiol (SEASONALE; JOLESSA; QUASENSE) tablet 10/25/2019 Active metFORMIN (GLUCOPHAGE) 500 MG tabletIndications:Con trolled type 2 diabetes mellitus without complication, without long-term current use of insulin (HCC) Take 1 (one) tablet by mouth once daily 90 tablet 10/07/2020 Active metoprolol tartrate (LOPRESSOR) 25 MG tabletIndications:Ess ential hypertension Take 1 (one) tablet by mouth 2 times daily 180 tablet 02/26/2021 Active Active Problems Problem Noted Date Diagnosed Date COVID-19 12/10/2020 Anxiety 12/10/2020 Physical debility 12/10/2020 History of COVID-19 12/02/2020 Gastroesophageal reflux disease without esophagi tis 03/12/2020 Controlled type 2 diabetes m ellitus without complication, without long-term current use of insulin 01/02/2020 Essential hypertension 01/02/2020 Mixed hyperlipidemia 01/02/2020 Encounter for HCV screening test for low risk pa tient 01/02/2020 Encounter for screening breast examination 01/01 Preventative health care 01/02/2020 Family History Medical History Relation Name Comments CAD (Coronary Artery Disease) Maternal Grandfather CAD (Coronary Artery Disease) Maternal Grandmother Relation Name Status Comments Maternal Grandfather Maternal Grandmother Social History Tobacco Use Types Packs/Day Years Used Date Smoking Tobacco: Never Smokeless Tobacco: Never Sex and Gender Information Value Date Recorded Sex Assigned at Not on file Gender Identity Not on file Sexual Orientation Not on file Last Filed Vital Signs Vital Sign Reading Time Taken Comments Blood Pressure 132/82 12/10/2020 2:32 PM CDT Pulse 88 12/10/2020 2:32 PM CDT Temperature 37.2 C (98.9 F) 12/10/2020 2:32 PM CDT Respiratory Rate 17 10/16/2017 10:11 AM CDT Oxygen Saturation 97% 12/10/2020 2:32 PM CDT Inhaled Oxygen Concentration - - Weight 71.8 kg (158 lb 3.2 oz) 12/10/2020 2:32 P M CDT Height 162.6 cm (5' 4 ) 12/10/2020 2:32 PM CDT Body Mass Index 27.15 12/10/2020 2:32 PM CDT Plan of Treatment Health Maintenance Due Date Last Done Comments COLOGUARD (AGES 45-75) - COLON CA SCREENING 1969 COLON MONITORING 1969 COLONOSCOPY - COLON CA SCREENING 1969 CT COLONOGRAPHY - COLON CA SCREENING 1969 Colorectal Cancer Screening 1969 FIT - COLON CA SCREENING 1969 FLEX SIG - COLON CA SCREENING 1969 DTAP/TDAP/TD VACCINES (1 - Tdap) 02/01/1988 HEPATITIS B VACCINE (1 of 3 - 19+ 3-dose series) 02/01/1988 PNEUMOCOCCAL VACCINE 50+ (1 of 2 - PCV) 02/01/1988 PNEUMOCOCCAL VACCINE (1 of 2 - PCV) 02/01/1988 ZOSTER VACCINE (1 of 2) 2019 DIABETES RETINOPATHY SCREENING 01/02/2020 DIABETES-FOOT EXAM WITH MONOFILAMENT 01/02/2020 DIABETES-HGB A1C 06/17/2021 12/17/2020, 02/2020, 07/05/2020, Additional history exists DIABETES-SERUM CREATININE 12/17/20212020, 11/20/2020, 11/19/2020, Additional history exists PAP SMEAR 02/28/2022 02/28/2019 (Done Outside Per Patient) MAMMOGRAM 03/14/2022 03/14/2020 COVID-19 VACCINE (2023- season) 2023 INFLUENZA VACCINE (#1) 2023 DEPRESSION SCREENING 02/29/2024 DIABETES - URINE PROTEIN SCREENING 02/29/2024 HIV SCREENING Completed 12/02/2019 (Done Outside Per Patient) HEPATITIS C SCREENING Completed 01/02/2020 HIB VACCINE Aged Out No longer eligi ble based on patient's age to complete this topic HPV VACCINE Aged Out No longer eligi ble based on patient's age to complete this topic MENINGOCOCCAL (Group B) VACCINE SHARED DECISION-MAKING Aged Out No longer eligible based on patient's age to complete this topic MENINGOCOCCAL GROUPS A/C/Y/W VACCINE Aged Out No longer eligible based on patient's age to complete this topic Procedures Procedure Name Priority Date/Time Associated Diagnosis Comments COMPREHENSIVE METABOLIC PANEL 12/17/2020 1:13 PM CDT HEMOGLOBIN A1C 12/17/2020 1:13 PM CDT MAMMO BILAT SCREENING Routine 03/14/2020 8:00 AM HAT FINISHER Encounter for screening breast examination HEPATITIS C ANTIBODY Routine 01/02/2020 4:19 PM HAT FINISHER Encounter for HCV screening test for low risk patient from Last 3 Months or Most Recently Relevant to Health Maintenance Results * (ABNORMAL) HEMOGLOBIN A1C (12/17/2020 1:13 PM CDT) Hemoglobin A1c 6.4(H) 4.8 - 5.6 % [facility] INSURANCE BILL Comment: . Prediabetes: 5.7 - 6.4 Diabetes: >6.4 Glycemic control for adults with diabetes: <7.0 FASTING 12/17/2020 1:13 PM CDT 12/17/2020 Narrative Resulting Agency Comment [facility]: [facility] [address] [facility] [id number] Mili Estevez MD LAB - CHEMISTRY O RDERABLES [facility] INSURANCE BILL [address] [place] [address] * (ABNORMAL) COMPREHENSIVE METABOLIC PANEL (12/17/2020 1:13 PM CDT) Glucose 130(H) 65 - 99 mg/dL [facility] INSURANCE BILL BUN 11 6 - 24 mg/dL [facility] INSURANCE BILL Creatinine 0.53(L) 0.57 - 1.00 mg/dL [facility] INSURANCE BILL eGFR by MDRD 110 >59 mL/min/1. 73 [facility] INSURANCE BILL eGFR by MDRD 127 >59 mL/min/1. 73 [facility] INSURANCE BILL Comment: In accordance with recommendations from the NKF-ASN Task force, [facility] is in the process of updating its eGFR calculation to the 2020 CKD-EPI creatinine equation that estimates kidney function without a race variable. BUN/Creatinine Ratio 21 9 - 23 [facility] INSURANCE BILL Sodium 141 134 - 144 mmol/L [facility] INSURANCE BILL Potassium 4.1 3.5 - 5.2 mmol/L [facility] INSURANCE BILL Chloride 107(H) 96 - 106 mmol/L [facility] INSURANCE BILL CO2 20 20 - 29 mmol/L [facility] INSURANCE BILL Calcium 9.1 8.7 - 10.2 mg/dL [facility] INSURANCE BILL Protein Total 6.3 6.0 - 8.5 g/dL [facility] INSURANCE BILL Albumin 4.0 3.8 - 4.9 g/dL [facility] INSURANCE BILL Globulin Total 2.3 1.5 - 4.5 g/dL [facility] INSURANCE BILL Albumin/Globulin Ratio 1.7 1.2 - 2.2 [facility] INSURANCE BILL Bilirubin Total 0.3 0.0 - 1.2 mg/dL [facility] INSURANCE BILL Alkaline Phosphatase 56 44 - 121 IU/L [facility] INSURANCE BILL Comment:Please note refere nce interval change AST 14 0 - 40 IU/L [facility] INSURANCE BILL ALT 15 0 - 32 IU/L [facility] INSURANCE BILL Comment:FASTING 12/17/2020 1:13 PM CDT 12/17/2020 Narrative Resulting Agency Comment Lab [facility] performed [facility]: [facility] [address] [facility] [id number] Mili Estevez MD LAB - CHEMISTRY O RDERABLES [facility] INSURANCE BILL [address] [place] [address] * MAMMO BILAT SCREENING (03/14/2020 8:00 AM HAT FINISHER) Anatomical Region Laterality Modality Breast Bilateral Mammography 03/14/2020 12:2 7 PM HAT FINISHER Impressions 03/14/2020 12:32 PM HAT FINISHER IMPRESSION: No mammographic evidence of malignancy. No change from the prior. RECOMMENDATION: Screening mammography in one year, pending no interval breast concerns. Patient will be notified of the results by lay letter. BI-RADS CATEGORY 1: NEGATIVE. This report was electronically signed by MOR OLEARY on 03/14/2020 12:32 PM . Narrative 03/14/2020 12:32 PM HAT FINISHER EXAM: DIGITAL MAMMO BILAT SCREENING WITH 3-D AND WITH CAD DATE OF EXAM: 03/14/2020 HISTORY: Screening. RISK ASSESSMENT CALCULATION: Not performed due to COVID precautions. COMPARISON: 11/05/2016. TECHNIQUE: Tomosynthesis (3-D) and reconstructed C - view (synthetic 2-D) images acquired and reviewed in the bilateral craniocaudal and mediolateral oblique projections. Images reviewed with CAD. BREAST COMPOSITION: Category B: Scattered areas of fibroglandular density. FINDINGS: No suspicious microcalcifications, focal dominant masses, or areas of architectural distortion on mammography. No significant change from the prior. Ronda Ramachandran MD MAMMO ORDERABLES * HEPATITIS C ANTIBODY (01/02/2020 4:19 PM HAT FINISHER) Hepatitis C Antibody Non-react tete Non-reac tive 01/02/2020 5:10 PM HAT FINISHER [facility] Comment:Hepatitis C Antibody screen indicates no serologic evidence of past or current infection with Hepatitis C Virus. Patients with unexplained liver disease who are immunocompromised or suspected of having acute Hepatitis C infection may benefit from Nucleic Acid Test (ANCELMO) for Hepatitis C Viral RNA to confirm Hepatitis C status. Blood BLOOD SPECIMEN / Unknown Lab Venipuncture / Unknown 01/02/2020 4:19 PM HAT FINISHER 01/02/2020 4:25 PM HAT FINISHER Ronda Ramachandran MD LAB - CHEMISTRY O RDERABLES [facility] [address] [place] [address], [facility] [phone] from Last 3 Months or Most Recently Relevant to Health Maintenance Care Teams Hot Wire Glass Tube Cutter Relationship Specialty Start Date End Date Bernie Joe APRN-OTR REFRIGERATED CDL TRUCK DRIVER [address] [id number] PCP - General 08/24/21 Ronda Ramachandran MD [address] OF [facility] [place] [address] Resident - PCP Internal Medicine 07/21/20
--- OUTSIDE RECORDS SUMMARY | 2024-05-14 07:33 | XMS_ITS | Referral Summary ---
Author Organization [facility] Address [address] [place] [address] Care Team Providers Care Signal Person Name Role Phone Ronda Ramachandran MD Unavailable Bernie JoeMUNICIPAL FIREFIGHTER Primary Care Provider + Source Comments [facility],non-owned Affiliates and Associated Physician Practices is amultiple site organization consisting of ambulatory clinics and hospital sitesin [place], [place], [place] and [place]. This disclosure is being madepursuant to the Care Everywhere program and may not contain all information available regarding this patient. Last updated 17.[facility] Allergies No known active allergies Medications * [...] breast examination 01/01 Preventative health care 01/02/2020 Social History Tobacco Use Types Packs/Day Years [...] 12/10/2020 2:32 PM CDT Plan of Treatment Not on file Procedures Procedure Name Priority Date/Time Associated Diagnosis Comments COMPREHENSIVE METABOLIC PANEL 12/17/2020 1:13 PM CDT HEMOGLOBIN A1C 12/17/2020 1:13 PM CDT MAMMO BILAT SCREENING Routine 03/14/2020 8:00 AM BRICK STACKER Encounter for screening breast examination HEPATITIS C ANTIBODY Routine 01/02/2020 4:19 PM BRICK STACKER Encounter for HCV screening test for low [...] Resulting Agency Comment [facility] [address] [facility] [id number] Mili Estevez MD LAB - CHEMISTRY O RDERABLES [facility] INSURANCE BILL [address] [place] [address] * (ABNORMAL) COMPREHENSIVE METABOLIC PANEL (12/17/2020 1:13 [...] with recommendations from the NKF-ASN Task force, [facility] is in the process of updating its [...] Resulting Agency Comment Lab Testing performed at: [id number] [id number] Mili Estevez MD LAB - CHEMISTRY O RDERABLES [facility] INSURANCE BILL [address] [place] [address] * MAMMO BILAT SCREENING (03/14/2020 8:00 AM BRICK STACKER) Anatomical Region Laterality Modality Breast Bilateral Mammography 03/14/2020 12:2 7 PM BRICK STACKER Impressions 03/14/2020 12:32 PM BRICK STACKER IMPRESSION: No mammographic evidence of malignancy. No change from the prior. RECOMMENDATION: Screening mammography in one year, pending no interval breast concerns. Patient will be notified of the results by lay letter. BI-RADS CATEGORY 1: NEGATIVE. This report was electronically signed by MOR OLEARY on 03/14/2020 12:32 PM . Narrative 03/14/2020 12:32 PM BRICK STACKER EXAM: DIGITAL MAMMO BILAT SCREENING WITH 3-D [...] * HEPATITIS C ANTIBODY (01/02/2020 4:19 PM BRICK STACKER) Hepatitis C Antibody Non-react tete Non-reac tive 01/02/2020 5:10 PM BRICK STACKER [facility] Comment:Hepatitis C Antibody screen [...] Lab Venipuncture / Unknown 01/02/2020 4:19 PM BRICK STACKER 01/02/2020 4:25 PM BRICK STACKER Ronda Ramachandran MD LAB - CHEMISTRY O RDERABLES [facility] [address] [place] [id number], [facility] [phone] from Last 3 Months or Most Recently Relevant to Health Maintenance Care Teams Signal Person Relationship Specialty Start Date End Date Bernie Joe APRN-MUNICIPAL FIREFIGHTER [address] [address] PCP - General 08/24/21 Ronda Ramachandran MD [address] OF [facility] [place] [address] Resident - PCP Internal Medicine 07/21/20
--- OUTSIDE RECORDS SUMMARY | 2024-05-14 07:33 | XMS_ITS | Patient Health Summary ---
Author Organization [facility] Address [address] [place] [address] Care Team Providers Care Instructional Systems Designer Name Role Phone Ronda Ramachandran MD Unavailable [phone] Bernie JoeTECHNICIAN HELPER INSTRUMENT Primary Care Provider + Note from [facility],non-owned Affiliates and Associated Physician Practices is amultiple site organization consisting of ambulatory clinics and hospital sitesin [place], [place], [place] and [place]. This disclosure is being madepursuant to the Care Everywhere program and may not contain all information available regarding this patient. Last updated 17.[facility] Allergies No known active allergies Medications * Be aware that medications may not be up to date on this document. Alwaysverify current medications with the patient. * lisinopril (PRINIVIL; ZESTRIL) 20 MG tablet Take 20 mg by mouth once daily * Other Reasons: control * atorvastatin (LIPITOR) 40 MG tablet(Started 12/31/2019) TAKE 1 TABLET DAILY * ONETOUCH VERIO test strip(Started 03/21/2019) * levonorgestrel-ethinyl estradiol (SEASONALE; JOLESSA; QUASENSE) tablet(Started 10/25/2019) * metFORMIN (GLUCOPHAGE) 500 MG tablet(Started 10/07/2020) Take 1 (one) tablet by mouth once daily * metoprolol tartrate (LOPRESSOR) 25 MG tablet(Started 02/26/2021) Take 1 (one) tablet by mouth 2 times daily Active Problems Problem Noted Date Diagnosed Date [...] Mass Index 27.15 12/10/2020 2:32 PM CDT Procedures * COMPREHENSIVE METABOLIC PANEL(Performed 12/17/2020) * HEMOGLOBIN A1C(Performed 12/17/2020) * CBC W/O DIFFERENTIAL W/O PLATELET(Performed 12/17/2020) * CBC W AUTO DIFFERENTIAL(Performed 07/05/2020) * HEMOGLOBIN A1C(Performed 07/05/2020) Performed for Preventative health care * LIPID PROFILE(Performed 07/05/2020) Performed for Preventative health care * COMPREHENSIVE METABOLIC PANEL(Performed 07/05/2020) Performed for Preventative health care * MAMMO BILAT SCREENING(Performed 03/14/2020) Performed for Encounter for screening breast examination * HEPATITIS C ANTIBODY(Performed 01/02/2020) Performed for Encounter for HCV screening test for low risk patient * HEMOGLOBIN A1C - POINT OF CARE (AMB) [facility](Performed 01/02/2020) Performed for Controlled type 2 diabetes mellitus without complication, without long-term current use of insulin (HCC) Results * (ABNORMAL) HEMOGLOBIN A1C (12/17/2020 1:13 PM CDT) Only the most recent of2 resultswithin the time period is included. Hemoglobin A1c 6.4(H) 4.8 - 5.6 % [facility] INSURANCE BILL Comment: . Prediabetes: 5.7 - 6.4 Diabetes: >6.4 Glycemic control for adults with diabetes: <7.0 FASTING 12/17/2020 1:13 PM CDT 12/17/2020 Narrative Resulting Agency Comment Lab Testing performed at: [facility] [id number] Mili Estevez MD LAB - CHEMISTRY O RDERABLES [facility] INSURANCE BILL [address] [place] [address] * CBC W/O DIFFERENTIAL W/O PLATELET (12/17/2020 1:13 PM CDT) Pathologist [facility] WBC 6.8 3.4 - 10.8 x10E3/uL [facility] INSURANCE BILL RBC 3.95 3.77 - 5.28 x10E6/uL [facility] INSURANCE BILL Hemoglobin 11.6 11.1 - 15.9 g/dL [facility] INSURANCE BILL Hematocrit 35.8 34.0 - 46.6 % [facility] INSURANCE BILL MCV 91 79 - 97 fL [facility] INSURANCE BILL MCH 29.4 26.6 - 33.0 pg [facility] INSURANCE BILL MCHC 32.4 31.5 - 35.7 g/dL [facility] INSURANCE BILL RDW 12.9 11.7 - 15.4 % [facility] INSURANCE BILL nRBC NOT NEEDED [facility] INSURANCE BILL Comment: FASTING Ancillary determined the test is not needed. 12/17/2020 1:13 PM CDT 12/17/2020 Narrative Resulting Agency Comment Lab Testing performed at: [facility] [place] [address] [facility] [id number] Mili Estevez MD LAB - HEMATOLOGY ORDERABLES [facility] INSURANCE BILL [address] [place] [address] * (ABNORMAL) COMPREHENSIVE METABOLIC PANEL (12/17/2020 1:13 PM CDT) Only the most recent of2 resultswithin the time period is included. Glucose 130(H) 65 - 99 mg/dL [facility] [...] Resulting Agency Comment [facility] [address] [facility] [id number] Mili Estevez MD LAB - CHEMISTRY O RDERABLES Performing Organization Address City/[facility]/ZIP Co de Phone Number [facility] INSURANCE BILL [address] [place] [address] * CBC WITH DIFFERENTIAL (07/05/2020 7:51 AM CDT) White Blood Cell Count 8.2 3.8 - 10.8 Thousand/u L [facility] RBC 4.45 3.80 - 5.10 Million/uL [facility] Hemoglobin 13.4 11.7 - 15.5 g/dL [facility] Hematocrit 40.0 35.0 - 45.0 % [facility] MCV 89.9 80.0 - 100.0 fL [facility] MCH 30.1 27.0 - 33.0 pg [facility] MCHC 33.5 32.0 - 36.0 g/dL [facility] RDW 12.7 11.0 - 15.0 % [facility] Platelet Count 315 140 - 400 Thousand/u L [facility] MPV 11.7 7.5 - 12.5 fL [facility] Neutrophil Absolute 5076 1500 - 7800 cells/uL [facility] Lymphocytes Absolute 2321 850 - 3900 cells/uL [facility] Absolute Monocytes 599 200 - 950 cells/uL [facility] Eosinophils Absolute 164 15 - 500 cells/uL [facility] Basophils Absolute 41 0 - 200 cells/uL [facility] Granulocytes % 61.9 % [facility] Lymphocytes % 28.3 % [facility] Monocytes % 7.3 % [facility] Eosinophils % 2.0 % [facility] Basophils % 0.5 % [facility] Comment: Test Performed at: [facility] [employer] [address] [address] FRANK CORMIER DO,MPH 07/05/2020 7:51 AM CDT 07/05/2020 7:53 AM CDT Mili Estevez MD LAB - HEMATOLOGY ORDERABLES Performing Organization Address [facility]/ZIP Co de Phone Number [facility] [address] [place] [address] * (ABNORMAL) LIPID PROFILE (07/05/2020 7:51 AM CDT) Cholesterol 182 <200 mg/dL [facility] HDL Cholesterol 46(L) > OR = 50 mg/dL [facility] Triglycerides 204(H) <150 mg/dL [facility] Comment: If a non-fasting specimen was collected, consider repeat triglyceride testing on a fasting specimen if clinically indicated. Darwin et al. J. of Clin. Lipidol. 2015;9:129-169. LDL Calculated 104(H) mg/dL (calc) [facility] Comment: Reference range: <100 Desirable range <100 mg/dL for primary prevention; <70 mg/dL for patients with CHD or diabetic patients with > or = 2 CHD risk factors. LDL-C is now calculated using the Fito-Morelia calculation, which is a validated novel method providing better accuracy than the Friedewald equation in the estimation of LDL-C. Fito SS et al. JOJO. 2013;310(19): 0237-0209 (http://education.[employer]/faq/FIH967) CHOL/HDLC RATIO 4.0 <5.0 (calc) [facility] Non HDL Cholesterol 136(H) <130 mg/dL (calc) [facility] Comment: For patients with diabetes plus 1 major ASCVD risk factor, treating to a non-HDL-C goal of <100 mg/dL (LDL-C of <70 mg/dL) is considered a therapeutic option. Test Performed at: [facility] [address] [place] [address] FRANK CORMIER DO,MPH Blood BLOOD SPECIMEN / Unknown 07/05/2020 7:51 AM CDT 07/05/2020 7:53 AM CDT Mili Estevez MD LAB - CHEMISTRY O RDERABLES [facility] [address] [place] [address] * MAMMO BILAT SCREENING (03/14/2020 8:00 AM [facility]) Anatomical Region Laterality Modality Breast Bilateral Mammography 03/14/2020 12:2 7 PM [facility] Impressions 03/14/2020 12:32 PM [facility] IMPRESSION: No mammographic evidence of malignancy. No change from the prior. RECOMMENDATION: Screening mammography in one year, pending no interval breast concerns. Patient will be notified of the results by lay letter. BI-RADS CATEGORY 1: NEGATIVE. This report was electronically signed by MOR OLEARY on 03/14/2020 12:32 PM . Narrative 03/14/2020 12:32 PM [facility] EXAM: DIGITAL MAMMO BILAT SCREENING WITH 3-D [...] * HEPATITIS C ANTIBODY (01/02/2020 4:19 PM [facility]USHER) Pathologist [facility] Hepatitis C Antibody Non-react tete Non-reac tive 01/02/2020 5:10 PM [facility] FL[facility] Comment:Hepatitis C Antibody screen indicates no serologic evidence of past or current infection with Hepatitis C Virus. Patients with unexplained liver disease who are immunocompromised or suspected of having acute Hepatitis C infection may benefit from Nucleic Acid Test (ANCELMO) for Hepatitis C Viral RNA to confirm Hepatitis C status. Blood BLOOD SPECIMEN / Unknown Lab Venipuncture / Unknown 01/02/2020 4:19 PM [facility] 01/02/2020 4:25 PM [facility] Ronda Ramachandran MD LAB - CHEMISTRY O RDERABLES [facility] [address] [place] [address], [place] [phone] * HEMOGLOBIN A1C - POINT OF CARE (AMB) U (01/02/2020 3:44 PM [facility]ING FLUSHER) Pathologist [facility] Hemoglobin A1c POCT 7.3 [facility] BLOOD SPECIMEN / Unknown 01/02/2020 3:44 PM [facility] Ronda Ramachandran MD LAB - POINT OF CA RE ORDERABLES [facility] [address] [facility] [address] [facility] [place] [address] Care Teams Instructional Systems Designer Relationship Specialty Start Date End Date Bernie Joe APRN-TECHNICIAN HELPER INSTRUMENT [address] [address] PCP - General 08/24/21 Ronda Ramachandran MD [address] OF [facility] [address] Resident - PCP Internal Medicine 07/21/20
--- OUTSIDE RECORDS SUMMARY | 2024-05-14 07:33 | XMS_ITS | Data Portability ---
Author Organization [facility] [employer], Main Office Address [address] [place] [address] Assessment No assessment recorded. Plan of Treatment Reminders Order Date Submit Date Provider Last Modified By Organization Details Last Modified Time Details Appointments None recorded. Lab hemoglobin A1C, fingerstick 2022 [address] Alex [address], [place], [address], 11:23:39 Referral None recorded. Procedures None recorded. Surgeries None recorded. Imaging None recorded. Medication Orders None recorded. Patient TargetsNo targets recorded. Patient InstructionsNo instructions recorded. Reason for Referral None Reported. Results Created Date Observation Date Name Description Value Unit Range Abnormal Flag Note LastModifiedBy Organization Detail LastModifiedTime 03/04/1903/04/2022 hemog lobin A1C, finge rstic k HgbA1C 8 Not Available [facility] [address], [place], [address], 03/03/2022 17:06:33 06/02/19 23 06/01/2022 hemog lobin A1C, finge rstic k HgbA1C 6.8 Not Available [address] Alex [address], [place], [address], 06/01/2022 09:01:44 03/17/19 23 XR, hand, 3 or more view No observ ation record ed. [id number] [facility] [place] [address], [place], [address], 04/29/2022 00:29:27 Result Notes None recorded. Problems Name Problem SNOMED Code Status Onset Date Resolution Date Notes Provider Name and Address Organization Details Recorded Time Mass of thoracic vertebrae 37231381001 9108 Completed 202103/23/2021 Not Available [facility] 3 00:27:20 Anti-nucl ear factor detected 560861450 Active 2021 Not Available [facility] 3 00:27:21 Traction bronchiec tasis 37022467 Active 2021 Not Available [facility] 3 00:27:21 Dyspnea 762884120 Active 2021 Not Available [facility] 3 00:27:21 Impaired exercise tolerance 597433291 Active 2021 Not Available [facility] 3 00:27:21 Loss of hair 958195256 Active 2020 Not Available [facility] 3 00:27:21 Normal grief reaction 310919467 Active 2020 Not Available [facility] 3 00:27:21 History of SARS-CoV- 2 69563788129 2996626 Active 2020 Not Available [facility] 3 00:27:21 Chest pain 82262498 Active 2021 Not Available [facility] 3 00:27:22 Tachycard ia 7274247 Active 2021 Not Available [facility] 3 00:27:22 Hypertens tete disorder 82967014 Active 2020 Not Available [facility] 3 00:27:22 D-dimer above reference range 831247723 Active 2021 Not Available [facility] 3 00:27:22 Fibrosis of lung 90306964 Active 2021 Not Available [facility] 3 00:27:22 Hyperlipi demia 88831595 Active 2020 Not Available [facility] 3 00:27:22 Diabetes mellitus 15165949 Active 2020 Not Available [facility] 3 00:27:22 Fatigue 50206290 Active 2021 Not Available [facility] 3 00:27:23 Pneumonia caused by SARS-CoV- 2 10537088508 8107013 Active 2020 Not Available [facility] 3 00:27:23 Pain of left hand 08572019441 9103 Active 2022 Gladys Durbin RMVanna null, [facility] 3 14:51:23 Bilateral carpal tunnel syndrome 99830041659 654791 Active 2022 Gladys Durbin RMA null, [facility] 3 14:51:31 Trigger finger of left hand 18179090548 462914 Active 2022 Gladys Durbin RMA null, 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 Procedures Surgical History None recorded. Imaging Results Imaging Date Name Status LastModified by [facility] Details LastModified Time 03/17/2022 XR, hand, 3 or more view completed [id number] [facility] [employer] [address], [place], [address], 04/29/2022 00:29:27 Procedure Notes None recorded. Medical Equipment None Reported. Allergies No known drug allergies Medications Name Sig Start Date Stop Date Status Note LastModified by Organization Details LastModified Time atorvastati n 40 mg tablet TAKE 1 TABLET DAILY active Not Available Not Available No t Available metformin 500 mg tablet Take 1 tablet every day by oral route for 90 days. 07/01 completed Not Available Not Available Not Available erythromyci n 500 mg tablet 08/25 completed Not Available Not Available Not Available lisinopril 20 mg tablet Take 1 po daily active Not Available Not Available No t Available metronidazo le 500 mg tablet TAKE 1 TABLET BY MOUTH THREE TIMES DAILY FOR 1 DAY 03/03 completed Not Available Not Available Not Available omeprazole 40 mg capsule,del ayed release TAKE 1 CAPSULE BY MOUTH EVERY DAY 03/03 completed Not Available Not Available Not Available Kenalog 10 mg/mL suspension for injection In office injection administe red by the provider 06/[address] [facility]: 0003- [phone]- 20 Not Available Not Available Not Available lisinopril 5 mg tablet active Not Available Not Available Not Available mupirocin 2 % topical ointment APPLY TOPICALLY TO THE AFFECTED AREA TWICE DAILY FOR 5 DAYS 03/17 completed Not Available Not Available Not Available metoprolol succinate ER 25 mg tablet,exte nded release 24 hr TAKE 1 TABLET BY MOUTH EVERY DAY active Not Available Not Available No t Available ergocalcife rol (vitamin D2) 1,250 mcg (50,000 unit) capsule TAKE 1 CAPSULE BY MOUTH EVERY WEEK active Not Available Not Available No t Available neomycin 500 mg tablet 06/01 completed Not Available Not Available Not Available albuterol sulfate HFA 90 mcg/actuati on aerosol inhaler Inhale 2 puffs every 4-6 hours by inhalatio n route as needed for 30 days. active Not Available Not Available No t Available ondansetron 4 mg disintegrat ing tablet active Not Available Not Available N ot Available metformin ER 500 mg tablet,exte nded release 24 hr TAKE 1 TABLET TWICE A DAY active Not Available Not Available No t Available levonorgest rel 0.15 mg-ethinyl estradiol 30 mcg tablets,3 mos pack(91) Take 1 po daily 03/17 completed Not Available Not Available Not Available metoprolol tartrate 25 mg tablet Take 1 po daily 03/03 completed Not Available Not Available Not Available nitrofurant oin monohydrate /macrocryst als 100 mg capsule TAKE 1 CAPSULE BY MOUTH TWICE DAILY WITH THE MORNING AND EVENING MEAL FOR 5 DAYS 02/18 completed Not Available Not Available Not Available ropivacaine (PF) 5 mg/mL (0.5 %) injection solution Take 1 mg by injection route. 06/01 completed Not Available Not Available Not Available Plenvu 140 gram-9 gram-5.2 gram powder packs MIX AND DRINK DIRECTED active Not Available Not Available No t Available Rybelsus 7 mg tablet Take 1 tablet every day by oral route. active Not Available Not Available No t Available Rybelsus 3 mg tablet TAKE 1 TABLET BY MOUTH EVERY DAY active Not Available Not Available No t Available FreeStyle Lucrecia 2 Sensor kit USE DIRECTED active Not Available Not Available No t Available FreeStyle Lucrecia 2 [place] active Not Available Not Available Not Available Mounjaro 5 mg/0.5 mL subcutaneou s pen injector INJECT SUBCUTANE OUS 5MG ONCE A WEEK active Not Available Not Available No t Available Mounjaro 2.5 mg/0.5 mL subcutaneou s pen injector active Not Available Not Available Not Available Vitals Date Recorded Body mass index (BMI) Body height Oxygen saturation Oxygen saturation in Arterial blood by Pulse oximetry Heart rate Body temperature Body weight Systolic blood pressure Diastolic blood pressure Provider Name and Address Organization Details Last Updated DateTime 3 29.9 kg/m2 162.56 cm 98 % 98 % 86 /min 97.3 [degF] 61562.0 7 g 140 mm[Hg] 84 mm[Hg] Not Available [facility] 3 00:27:02 Date Recorded Body mass index (BMI) Body height Pain severity - 0-10 verbal numeric rating [Score] - Reported Body weight Provider Name and Address Organization Details Last Updated DateTime 03/17/2022 28.3 kg/m2 162.56 cm 5 75270.74 g Not Available [facility] 04/29/2022 00:27:04 Date Recorded Body height Body mass index (BMI) Body weight Pain severity - 0-10 verbal numeric rating [Score] - Reported Provider Name and Address Organization Details Last Updated DateTime 05/18/2022 162.56 cm 27.5 kg/m2 38982.78 g 1 Gladys Durbin [facility] [employer] [facility] 05/18/2022 14:49:06 Date Recorded Body height Body mass index (BMI) Body weight Body temperature Heart rate Oxygen saturation Oxygen saturation in Arterial blood by Pulse oximetry Systolic blood pressure Diastolic blood pressure Provider Name and Address Organization Details Last Updated DateTime 3 162.56 cm 29 kg/m2 43330.1 1 g 97.6 [degF] 81 /min 98 % 98 % 128 mm[Hg] 78 mm[Hg] Gisselle Zepeda [facility] [employer] [facility] 08:56:51 Date Recorded Body height Body mass index (BMI) Body weight Body temperature Heart rate Oxygen saturation Oxygen saturation in Arterial blood by Pulse oximetry Systolic blood pressure Diastolic blood pressure Provider Name and Address Organization Details Last Updated DateTime 3 162.56 cm 29.2 kg/m2 08436.7 g 96.6 [degF] 68 /min 99 % 99 % 120 mm[Hg] 68 mm[Hg] Sarah Santoro [facility] [employer] [facility] 3 10:03:13 Social History Question Answer Notes LastModified by Organizat ion Details LastModified Time Tobacco Smoking Status Never Smoker Not Available [facility] 04/29/2022 00:26:13 What Is Your Level Of Alcohol Consumption? None [email or web address] Information not available 08/25/2022 What Is Your Level Of Caffeine Consumption? Heavy [email or web address] Information not available 08/25/2022 In The 14 Days Before Symptom Onset, Have You Had Close Contact With A Laboratory-confir med COVID-19 While That Case Was Ill? No [id number] Information not available 04/29/2022 In The 14 Days Before Symptom Onset, Have You Had Close Contact With A Person Who Is Under Investigation For COVID-19 While That Person Was Ill? No [id number] Information not available 04/29/2022 What Type Of Diet Are You Following? CARBOHYDRATE MIGRATION.[id number] Information not available 04/29/2022 What Was The Date Of Your Most Recent Tobacco Screening? 03/17/2022 [id number] Information not available 04/29/2022 Do You Have Any Pets? Yes Dog Inside [id number] Information not available 04/29/2022 Do You Use Any Illicit Or Recreational Drugs? No MIGRATION.11296 [id number] Information not available 04/29/2022 Have You Recently Traveled Abroad? No MIGRATION.[id number] Information not available 04/29/2022 Do You Or Have You Ever Used Any Other Forms Of Tobacco Or Nicotine? No MIGRATION.48119 [id number] Information not available 04/29/2022 Sex: Unknown Functional Status Question Answer Note LastModified by Organizat ion Details LastModified Time What is your exercise level? Occasional [id number] Information not available 04/29/2022 Mental Status None recorded. Family History Relationship Description Onset Age of this Age Resolved Age Notes LastModified by Organization Details LastModified Time Father Hemochromato sis [id number] Not available 04/29/2022 00:26:28 Medical History No medical history recorded. Gynecological HistoryNo gynecological history recorded. Obstetrics History GPAL:G 0 P 0 0 0 0 Immunizations Vaccine Type Date Status Note Provider Nam e and Address Organization Details Recorded Time COVID-19, mRNA, LNP-S, PF, 30 mcg/0.3 mL dose 10/15/2020 completed Not Available [facility] 00:29:11 Past Encounters Encounter ID Performer Location Encounter Start Date Encounter Closed Date Diagnosis/Indication Diagnosis SNOMED-CT Code Diagnosis ICD10 Code Diagnosis Note [id number] [facility] [address] 02/18/2021 00:00:00 02/18/2021 11:16:34 [id number] [place] [address] 03/23/2021 00:00:00 03/23/2021 12:29:24 [id number] [facility] Pulmon[facility] [place] [address] [place] [address] 03/25/2021 00:00:00 03/25/2021 13:32:54 [id number] S_[facility] Pulmonolo [facility] [employer] [address] [place] [address] 04/28/2021 00:00:00 04/28/2021 12:45:25 [id number] S_[facility] [place] [address], [place] [address] 06/30/2021 00:00:00 06/30/2021 13:34:18 [id number] S_[facility] Pulmonolo [facility] [employer] [address] [place] [address] 08/25/2021 00:00:00 08/25/2021 14:32:34 [id number] [facility] [place] [address] [facility] [place] [address] 03/03/2022 00:00:00 03/03/2022 20:46:28 [id number] S_G Orth[facility] [employer] [address] [place] [address] 03/17/2022 00:00:00 03/17/2022 15:59:10 [id number] Gavin Sylvester MD [facility] Orth[facility] [employer] [address] [place] [address] 05/18/2022 14:46:20 05/18/2022 15:54:37 Pain of left hand 1535563959 63720 M79.642 Bilateral carpal tunnel syndrome 9943733531 3227006 G56.02 patient will continue another month with the night bracing we will see her back if she gets recurrent trigger finger or she starts developing the recurrent nocturnal paresthesi as the numbing in the tingling and does not respond to the bracing Trigger fi nger of left hand 6877305185 6898753 M65.342 [id number] Panchito Burkett MD [facility] [place] [address], [place] [address] 06/01/2022 08:49:38 06/01/2022 09:08:39 Type 2 diabetes mellitus without complication 993561736 E11.9 A1C was 6.8% Continue same meds. F/u in 3 months. [id number] Sophie Perez, [facility] Pulmonolo gy [place] [address] [place] [address] 08/25/2022 09:51:09 08/25/2022 10:24:38 Interstitial lung disease 711544450 J84.[address] chest at [facility], staff requestedR TC for follow up in 4-6 months Traction bronchiectasis 53825623 J47.[address] chest, flutter valve and [facility] clinic follow ups Chronic po st-COVID-19 syndrome 9402460525 U09.9 Intubated 10/29/20PF T 03/2021 normalSix minute walk testing normalIn light of persistent symptoms, we have discussed the uncertain recovery of COVID19.En couraged exercise as toleratedD iscussed S/S that require emergent evaluation Fatigue 27164320 R53.83 REINA positivePr evious referral to [facility] Concerns Section Related Observation LastModified by Organization Detai ls LastModified Time None Recorded Concern Status LastModified by Organization Details LastModified Time None Recorded Advance Directives Directive None Recorded Payers Encounter Date Sequence Insurance Name Policy Number Policy Polo Covered Member ID Polo Member ID Guarantor Name 05/18/2022 1 [place] [id number] Karina Chavez [id number] Karina Chavez 06/01/2022 1 [place] [id number] Karina Chavez [id number] Karina Chavez 08/25/2022 1 [place] [id number] Karina Chavez [id number] Karina Chavez Notes Date Note Type Note Provider Name and Address Organization Details Recorded Time 05/18/2022 text/html patient had a le ft ring trigger finger left carpal tunnel we did injection and splinting she is feeling a lot better now the triggering is better than numbing and tingling is better comes in today for follow-up Gavin Sylvester MD [address] [place] [address], [facility] [address], [place], [address], [place] [employer] 05/18/2022 17:12:06 06/01/2022 text/html Here for f/u of A1C check. She is on the 7 mg of rybelsus. No tingling or numbness of feet no calluses or sores. Panchito Burkett MD [address] [facility], [facility] [address], [place], [address], [facility] [employer] 06/01/2022 09:09:58 08/25/2022 text/html Ms Chavez present s today to follow up on ILD/bronchiectasis, [id number] dyspnea, referralsShaquilino has seen the ILD clinic and has follow up in October.Reports no new medications or treatments.Denies shortness of breath with dressing, bathing, stairs and ADLs.She does tell me she still has some dyspnea with mopping the floorsDenies cough, wheezing, waking at night due to respiratory symptoms.She has rare chest tightness, has seen cardiology for full evaluation.No hemoptysis, night sweats, enlarged lymph nodes, unintentional weight loss. Sophie Perez, SHERIE-BC [address] [facility], [facility] [address], [place], [address], [facility] [employer] 08/25/2022 10:59:42 OBGyn Episode No OBEpisode recorded.
--- OUTSIDE RECORDS SUMMARY | 2024-05-14 07:34 | XMS_ITS | Continuity of Care Document ---
Author Organization [facility] Address [address] [facility] [address] [place] [address] Phone Care Team Providers Care Commercial Housekeeper Name Role Phone Mares OD, Jessee Unavailable Unavailable Advance Directives Directive Yes / No Effective Date File Name No Information Encounters Encounter Description Practice Location Reason(s) For Visit Diagnoses Date Provider Providers Copied on Encounter [facility], [address], [place], [place], [id number], [place] tel:[phone] [facility] No Information [phone] Mares OD Jessee. [address] [facility] , [address], [place], [address], [place]. tel:[phone] Family History Family Member Type Diagnosis Age At Onset No Information Payers Payer name Insurance type Covered libertarian ID Authoriza tion(s) No Information Social History Type Description Quantity Date Captured Comments Sex Female Smoking Status No Information Chief Complaint And Reason For Visit No Information Reason For Referral Reason For Referral No Information History Of Present Illness Encounter Date Complaint History Of Prese nt Illness No Information Functional Status Date Functional Assessmen t No Information Instructions Date Instruction Additional Infor mation No Information Assessments Type Assessment Date No Information Patient Care Teams Name Effective Dates (start - stop) Status Members No Information
--- OUTSIDE RECORDS SUMMARY | 2024-05-14 07:34 | XMS_ITS | CONTINUITY OF CARE DOCUMENT ---
Author Name todd brooks Address Unknown Organization [facility] Address [address] [facility] [address] [place] [address] Phone [phone] Care Team Providers Care Casting Carrier Name Role Phone Kiya Morse MD Unavailable ANTONIO SORENSON Unavailable ANTONIO SORENSON Unavailable PROBLEMS Condition Status Date Provider Notes Chest pain active Armando Ahmedzai Fatigue active Armando Ahmedzai Diabetes mellitus, type 2 active Armando Ahmed staci Exposure to COVID-19 coronavirus active Dee z Ahmedzai Tachycardia active Armando Ahmedzai Hyperlipidemia active Armando Ahmedzai Essential hypertension active Armando Ahmedzai SOB, pulmonary fibrosis on C T 05/2021 active George Godinez Anti-nuclear factor positive completed 202 04/04/15 - George Godinez ENCOUNTERS Date Type Provider Location Encounter Diagnosis - In-person encounter Office Visit Kiya Morse MD [facility] - In-person encounter Office Visit Kiya Morse MD [facility] - In-person encounter Office Visit Kiya Morse MD [facility] Anti-nuclear factor positiveSOB, pulmonary fibrosis on CT 05/2021 - In-person encounter Office Visit Kiya Morse MD [facility] VITAL SIGNS Date Observation Value Provider Body Mass Index (Ratio) 25.06 kg/m2 Cole Morse MD blood pressure, diastolic 72 mm[Hg] Li nkLogic blood pressure, systolic 101 mm[Hg] Sonia kLogic blood pressure, cuff size regular Ja rret blood pressure, diastolic 72 mm[Hg] Ja rret blood pressure, systolic 101 mm[Hg] Jar ret pulse rate 77 /min Marcus respiratory rate E&M 14 /min Marcus oxygen saturation, oximetry 99 % Marcus weight E&M 146 [lb_av] Marcus y height E&M 64 [in_i] Marcus y Body Mass Index (Ratio) 30.04 kg/m2 Cole Morse MD blood pressure, cuff size regular Ri amrik Winter blood pressure, diastolic 84 mm[Hg] Ri amrik Winter blood pressure, systolic 132 mm[Hg] Catalino sandra Winter oxygen saturation, oximetry 97 % Chandni Winter respiratory rate E&M 16 /min Evelin rolle Winter weight E&M 175 [lb_av] Chandni White son height E&M 64 [in_i] Chandni White son Body Mass Index (Ratio) 27.80 kg/m2 Cole Morse MD blood pressure, diastolic 71 mm[Hg] Sa ra Carter blood pressure, systolic 132 mm[Hg] Graciela a Carter oxygen saturation, oximetry 98 % Sarah Carter respiratory rate E&M 20 /min Sarah Si ms pulse rate 79 /min Sarah Carter weight E&M 162 [lb_av] Sarah Carter height E&M 64 [in_i] Sarah Carter Body Mass Index (Ratio) 27.98 kg/m2 Cole Morse MD blood pressure, diastolic 85 mm[Hg] Li nkLogic blood pressure, systolic 134 mm[Hg] Sonia kLogic blood pressure, diastolic 85 mm[Hg] Ca therine [place] blood pressure, systolic 134 mm[Hg] Cat herine [place] oxygen saturation, oximetry 98 % Winter [place] respiratory rate E&M 16 /min Catheri ne Nicolas pulse rate 89 /min Winter Nicolas weight E&M 163 [lb_av] Winter Nicolas height E&M 64 [in_i] Winter [place] blood pressure, cuff size regular Ca therine Nicolas ALLERGIES No Known Drug Allergies HISTORY OF MEDICATION USE Medication Status Instructions Dates Provider Indications Com mai Solo 5 mg/0.5 mL pen injector active Armando Sung metoprolol succinate 25 mg tablet extended release 24 hr active TAKE 1 TABLET DAILY Armando Sung metoprolol succinate 25 mg tablet extended release 24 hr completed Take 1 tablet by mouth once a day - Chastity Felton omeprazole 40 mg capsule,delayed release(/EC) completed - Armando Sung metoprolol tartrate 25 mg tablet completed TAKE HALF PILL BID - Armando Sung nitrofurantoin monohyd/m-cryst 100 mg capsule completed - Armando Sung Rybelsus 3 mg tablet completed - Armando Sung levonorgestrel-eth inyl estrad 0.15 mg-30 mcg (91) tablets,dose pack,3 month completed - Armando Burdenzamacy lisinopril 5 mg tablet active Armando Susanjose metformin 500 mg tablet active Winter Nicolas atorvastatin 40 mg tablet active Winter [place] SOCIAL HISTORY Date Observation Value Provider smoking status Never smoker Armando Bertramzamacy social history E&M S moking History: Hilaria casey has never smoked. Armando Sung smoking status Never smoker Chandni Miri brownjaron social history reviewed E&M revi ewed - no changes required Kiya Morse MD number of grandchildren Kiya Godinez social history E&M S moking History: Hilaria casey has never smoked. George Godinez smoking status Never smoker George Godinez social history reviewed E&M revi ewed - no changes required Kiya Morse MD smoking status Never smoker Winter Hankinsi s social history reviewed E&M revi ewed - no changes required Armando Sung INSURANCE PROVIDERS Payer name Policy type / Coverage type Kendall red alliance party ID [id number] 1 ADVANCE DIRECTIVES Name Date DISCUSSED - NO DECISION MADE TREATMENT PLAN Date Name Performer [id number],S, Armando Susanmartinza i [id number],B, Armando Burdenza i [id number],S, Armando Susanmedza i [id number],S, Armando Susanmedza i [id number],S, Armando Susanmedza i [id number],B, Armando Susanmedza i [id number],S, Armando Davismedza i [id number],S, Armando Ahmedza i [id number],S, Armando Us i [id number],S, Armando Us i [id number],S, George Godinez [id number],S, George Godinez [id number],S, George Godinez [id number],S, George Godinez [id number],S, George Godinez [id number],S, George Godinez [id number],S, Armando Us i [id number],S, Armando Us i [id number],S, Armando Us i [id number],S, Armando Us i [id number],S, Armando Us i [id number],S, Armando Us i Cardiology: H er updated medication list for this problem includes: Lisinopril 5 Mg Tablet (Lisinopril) Metoprolol Succinate 25 Mg Tablet Extended Release 24 Hr (Metoprolol succinate) ..... Take 1 tablet daily Armando [place] Cardiology: H er updated medication list for this problem includes: Lisinopril 5 Mg Tablet (Lisinopril) Metoprolol Succinate 25 Mg Tablet Extended Release 24 Hr (Metoprolol succinate) ..... Take 1 tablet daily [facility] Cardiology: Her updated medication list for this problem includes: Lisinopril 5 Mg Tablet (Lisinopril) Mounjaro 5 Mg/0.5 Ml Pen Injector (Tirzepatide) Metformin 500 Mg Tablet (Metformin) [facility]: H er updated medication list for this problem includes: Lisinopril 5 Mg Tablet (Lisinopril) Metoprolol Succinate 25 Mg Tablet Extended Release 24 Hr (Metoprolol succinate) ..... Take 1 tablet daily BP today: 101/72 P rior BP: 132/84 (03/03/2022) Armando Sung Cardiology: H er updated medication list for this problem includes: Atorvastatin 40 Mg Tablet (Atorvastatin) Armando Davismedzai Cardiology Armando Usi Cardiology Armando Burdenzai Cardiology Armando Burdenzamacy Cardiology Armando Burdenzamacy Cardiology Armando Burdenzai Telehealth Armando Sung Telehealth Armando Sung Telehealth Armando Sung Telehealth Armando Sung Telehealth Armando Sung Cardiology [facility] [place] [place] [place] [place] [place] [place] Cardiology Armando Burdenzai Cardiology Armando Burdenzamacy Cardiology Armando Sung Cardiology Armando Sung Cardiology Armando Burdenzamacy Cardiology Armando Sung Date Name Monitor - Telemetry (Mobile Cardiac) HISTORY OF PROCEDURES Procedure Date Procedure Name Provider Procedure Notes S tatus EKG Kiya Morse MD completed EKG Kiya Morse MD completed
== END 2024-05-14 07:29 | disposition home or self-care (01) ==
LOC: ANHIMG 07:30
PROVIDERS: PCP Nurse Practitioner Adult Health; Visit Provider Nurse Practitioner Adult Health
DX: Z12.31 Encounter for screening mammogram for malignant neoplasm of breast (principal)
CPT/HCPCS: 77063; 77067

== ENCOUNTER 2024-06-13 07:50 | Outpatient (CLI) | payer BC, SELFPAY ==
--- OUTSIDE RECORDS SUMMARY | 2024-06-13 07:55 | XMS_ITS | Referral Summary ---
Author Organization [facility] Address [facility] [place] [address] Care Team Providers Care Link Trainer Maintenance Man Name Role Phone Bernie Joe NP Primary Care Provider [phone] David Padilla MD Unavailable [phone] Allergies No known active allergies Medications metFORMIN (GLUCOPHAGE) 500 mg tablet Take 1 tablet (500 mg total) by mouth 2 (two) times a day with meals 2 Active lisinopriL (PRINIVIL,ZESTRIL) 20 mg tablet Take 2.5 mg by mouth daily 2 Active metoprolol XL (TOPROL-XL) 25 mg extended release tablet Take 0.5 tablets (12.5 mg total) by mouth daily Active atorvastatin (LIPITOR) 40 mg tablet Take 1 tablet (40 mg total) by mouth nightly Active ergocalciferol (VITAMIN D) 50,000 unit capsule Take 1 capsule (50,000 Units total) by mouth 3 Active ondansetron ODT (ZOFRAN-ODT) 4 mg disintegrating tablet 3 Active Plenvu 140-9-5.2 gram powder in packet, sequential MIX AND DRINK DIRECTED 3 Active Mounjaro 5 mg/0.5 mL pen injector 3 Active Active Problems Problem Noted Date Diagnosed Date COVID-19 10/06/2021 Assessment & Plan (10/29/2021 2:43 PM CDT): Scheduled follow-up at [facility] post COVID, acute lung injury. 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 Looks great. Absolutely tragic circumstances regarding her diagnosis of COVID, her 's passing etcetera. Normal bedside exam. Assessment & Plan (10/06/2021 1:20 PM CDT): Recovered from COVID, acute lung injury requiring intubation, mechanical ventilation. Treated with Decadron, remdesivir, baricitinib. tragically . She is not required oxygen. Normal bedside exam. Did not require anticoagulation for venous thromboembolism. Preoperative evaluation of a medical condition to rule out surgical contraindications (TAR required) 10/06/2021 Assessment & Plan (10/29/2021 2:43 PM CDT): Uneventful recovery from Colorectal surgery. Looks great. Apparently not malignant. Assessment & Plan (10/06/2021 1:22 PM CDT): By report, likely chronic appearing post COVID changes on CT, residual of acute lung injury/ARDS. Has not required home oxygen. Well preserved lung function. No immediate contraindication to colorectal surgery. That having been said, postop pulmonary complications could include atelectasis, aspiration, bronchospasm, delayed weaning, infection, increased lung water, venous thromboembolism, barotrauma etcetera. No additional diagnostic testing needed. 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 More than three times a week 10/13/2021 How often do you get togethe r with friends or relatives? More than three times a week 10/13/2021 How often do you attend chur or latter day services? More than 4 times per year 10/13/2021 Do you belong to any clubs o r organizations such as muslim groups, unions, fraternal or athletic groups, or school groups? Yes 10/13/2021 How often do you attend meet ings of the clubs or organizations you belong to? More than 4 times per year 10/13/2021 Are you , , di vorced, , never , or living with a partner? 10/13/2021 AUDIT-C Answer Date Recorded Q1: How often do you have a drink containing alcohol? Monthly or less 10/01/2021 Q2: How many drinks containi ng alcohol do you have on a typical day when you are drinking? Patient does not drink Q3: How often do you have si x or more drinks on one occasion? Never 10/01/2021 Overall Financial Resource Strain (CARDIA) Answe r Date Recorded How hard is it for you to pa y for the very basics like food, housing, medical care, and heating? Not hard at all 10/13/2021 Hunger Vital Sign Answer Date Recorded Within the past 12 months, y ou worried that your food would run out before you got the money to buy more. Never true 10/14/19 22 Within the past 12 months, t he food you bought just didn't last and you didn't have money to get more. Never true 10/13/2021 PRAPARE - Transportation Answer Date Re corded In the past 12 months, has l ack of transportation kept you from medical appointments or from getting medications? No 09/28 In the past 12 months, has l ack of transportation kept you from meetings, work, or from getting things needed for daily living? No 10/13/2021 Housing Stability Vital Sign Answer Felix e Recorded In the last 12 months, was t here a time when you were not able to pay the mortgage or rent on time? No 10/13/2021 In the last 12 months, how many places have you lived? 1 10/13/2021 In the last 12 months, was t here a time when you did not have a steady place to sleep or slept in a correction (including now)? No 10/13/2021 Comments Unknown Sex and Gender Information Value Date Recorded Sex Assigned at Not on file Legal Sex Female 12:18 PM CDT Gender Identity Not on file Sexual Orientation Not on file Last Filed Vital Signs Vital Sign Reading Time Taken Comments Blood Pressure 101/73 11/04/2023 8:18 AM CDT Pulse 72 11/04/2023 8:18 AM CDT Temperature 36.6 C (97.8 F) 11/04/2023 8:18 AM CDT Respiratory Rate 18 11/04/2023 8:18 AM CDT Oxygen Saturation 99% 11/04/2023 8:18 AM CDT Inhaled Oxygen Concentration - - Weight 64 kg (141 lb) 11/04/2023 8:18 AM CDT Height 160 cm (5' 3 ) 11/04/2023 8:18 AM CDT Body Mass Index 24.98 11/04/2023 8:18 AM CDT Plan of Treatment Not on file Procedures Procedure Name Priority Date/Time Associated Diagnosis Comments EGFR Routine 10/13/2021 5:17 AM CDT HEMOGLOBIN A1C Routine 10/01/2021 3:29 PM CDT Preop testing SCREENING MAMMOGRAM 2D BILATERAL Routine 11/05/2016 12:00 AM CDT from Last 3 Months or Most Recently Relevant to Health Maintenance Results * eGFR (10/13/2021 5:17 AM CDT) eGFR 105 mL/min/1. 73 m2 [facility] Comment: Interpretive Data Reference Interval Normal >/= 90 mL/min/1.73m2 Mildly decreased* 60 - 89 mL/min/1.73m2 Mildly to moderately decreased 45 - 59 mL/min/1.73m2 Moderately to severely decreased 30 - 44 mL/min/1.73m2 Severely decreased 15 - 29 mL/min/1.73m2 Kidney Failure < 15 mL/min/1.73m2 *Relative to young adult level Estimated glomerular filtration rate is determined by the 2020 CKD-EPI equation recommended by the National Kidney Foundation (A Unifying Approach to GFR Estimation: Recommendations of the NKF-ASK Task Force on Reassessing the Inclusion of Race in Diagnosing Kidney Disease, JASN 2020). The CKD-EPI equation should not be used for patients with unstable renal function and has not been validated in children and those over 70. Current interpretive data was last reviewed 2020. Blood 10/13/2021 5:17 AM CDT 10/13/2021 5:58 AM CDT us David Padilla MD LAB BLOOD ORDERABLES Fin al Result Performing Organization Address [facility] Co de Phone Number [facility] [address] [place] [address] * (ABNORMAL) Hemoglobin A1c (10/01/2021 3:29 PM CDT) Hgb A1C 6.8(H) 4.0 - 5.6 % [facility] Estimated Average Glucose 148 mg/dL [facility] Comment: The ADA recommends reporting an estimated Average Glucose (eAG) with all Hemoglobin A1c results using the equation derived from a study of 507 normal and diabetic adults. Minority populations were underrepresented and children were not included. (Diabetes Care 31:0167-7581, 2007). The eAG is not equivalent to a fasting glucose. Blood 10/01/2021 3:29 PM CDT 10/01/2021 3:29 PM CDT us Lucie Contreras NP LAB BLOOD ORDERABLES Fi nal Result Performing Organization Address [facility] Co de Phone Number [facility] [address] [place] [address] * Screening Mammogram 2D Bilateral (11/05/2016 12:00 AM CDT) Anatomical Region Laterality Modality Breast Bilateral Mammography 11/05/2016 5:36 PM CDT Narrative 11/05/2016 5:36 PM CDT - SCREENING MAMM BI BILATERAL DIGITAL SCREENING MAMMOGRAM WITH CAD: 11/05/2016 CLINICAL: Routine screening. Routine checkup. Patient has no complaints. Comparison is made to exams dated: 07/24/2008 and 01/25/2007 [facility]. There are scattered fibroglandular elements in both breasts. Current study was also evaluated with a Computer Aided Detection (CAD) system. No significant masses, calcifications, or other findings are seen in either breast. There has been no significant interval change. IMPRESSION: NEGATIVE There is no mammographic evidence of malignancy. A 1 year screening mammogram is recommended. The patient will be contacted by letter. La Dias M.D. crossword puzzle maker/penrad:11/11/2016 07:36:57 copy to: Pari Garcia, ph: [phone], fax: [phone] letter sent: Normal Exam Mammogram BI-RADS: 1 Negative Radiologist: LA DIAS Attending: LUCIANO JACKSON Requesting: LUCIANO JACKSON Requesting Requesting ID: [id number] Attending Attending ID: [id number] Completed Time: 11/05/2016 12:36 AM Dictated Time: N/A Transcribed Time: 11/11/2016 08:22 AM Signed by: LA DIAS on 11/11/2016 08:22 AM Report To 1 ID: [id number] Report To 1 Name: PARI GARCIA Report To 1 FAX: Report To 2 ID: Report To 2 Name: , Report To 2 FAX: Report To 3 ID: Report To 3 Name: , Report To 3 FAX: NextGen Order #: Procedure Note Miscellaneous, Not In File / Provider, MD Yonathan - 11/11/2016 - SCREENING MAMM BI BILATERAL DIGITAL SCREENING MAMMOGRAM WITH CAD: 11/05/2016 CLINICAL: Routine screening. Routine checkup. Patient has no complaints. Comparison is made to exams dated: 07/24/2008 and 01/25/2007 [facility]. There are scattered fibroglandular elements in both breasts. Current study was also evaluated with a Computer Aided Detection (CAD) system. No significant masses, calcifications, or other findings are seen in either breast. There has been no significant interval change. IMPRESSION: NEGATIVE There is no mammographic evidence of malignancy. A 1 year screening mammogram is recommended. The patient will be contacted by letter. La Dias M.D. crossword puzzle maker/penrad:11/11/2016 07:36:57 copy to: Pari Garcia, ph: [phone], fax: [phone] letter sent: Normal Exam Mammogram BI-RADS: 1 Negative Radiologist: LA DIAS Attending: LUCIANO JACKSON Requesting: LUCIANO JACKSON Requesting Requesting ID: [id number] Attending Attending ID: [id number] Completed Time: 11/05/2016 12:36 AM Dictated Time: N/A Transcribed Time: 11/11/2016 08:22 AM Signed by: LA DIAS on 11/11/2016 08:22 AM Report To 1 ID: [id number] Report To 1 Name: PARI GARCIA Report To 1 FAX: Report To 2 ID: Report To 2 Name: , Report To 2 FAX: Report To 3 ID: Report To 3 Name: , Report To 3 FAX: NextGen Order #: Luciano Jackson MD IMG MAMMO PROCEDURES Edited Re sult - Final from Last 3 Months or Most Recently Relevant to Health Maintenance Insurance [employer] For more information, please contact: [phone] * Full Code (Latest Code Status on File) Date Activated Date Inactivated Comments 10/12/2021 12:50 PM 10/14/2021 7:37 PM Care Teams Link Trainer Maintenance Man Relationship Specialty Start Date End Date Bernie Joe NP [address] [place] [address] [place] [address] PCP - General Nurse Practitioner 07/02/21 David Padilla MD [address] [place] [address] [place] [address] Consulting Physician Colon and Rectal Surgery 10/14/21
--- OUTSIDE RECORDS SUMMARY | 2024-06-13 07:55 | XMS_ITS | Clinical Summary ---
Author Organization [facility] Address [address] [place] [address] Care Team Providers Care Hydropulper Operator Name Role Phone Bernie Joe NP Primary Care Provider [phone] David Padilla MD Unavailable [phone] Allergies No known active allergies Medications metFORMIN [...] (10/29/2021 2:43 PM CDT): Scheduled follow-up at [facility] post COVID, acute lung injury. Participating in [...] (hyperlipidemia) 07/02/2021 Diabetes mellitus 02/18/2021 Pulmonary fibrosis Medical History Medical History Date Comments HTN (hypertension) HLD (hyperlipidemia) DM (diabetes mellitus) (HCC) History of COVID-19 10/2020 patient was hospitalized and on a ventilator for 2 weeks Neoplasm of transverse colon Family History Medical History Relation Name Comments Heart disease Father angent or Father Relation Name Status Comments Father Mother Alive Social History Tobacco Use Types Packs/Day Years [...] 10/13/2021 How often do you attend chur ch or zoroastrianism services? More than 4 times per year 10/13/2021 Do you belong to any clubs o r organizations such as methodist groups, unions, fraternal or athletic groups, or [...] place to sleep or slept in a snf (including now)? No 10/13/2021 Comments Unknown Sex and Gender Information Value Date Recorded Sex Assigned at Not on file Legal Sex Female 12:18 PM CDT Gender Identity Not on file Sexual Orientation Not on file Obstetrics History Last Filed Vital Signs Vital Sign Reading [...] 11/04/2023 8:18 AM CDT Plan of Treatment Health Maintenance Due Date Last Done Comments Albumin Creatinine Ratio, Urine 1969 Cervical Cancer Screening 1969 Colon Cancer Screening-Colonoscopy 1969 Depression Screening 1969 Hepatitis C Screening 1969 Dilated Eye Exam 1969 Foot Exam 1969 Lipid Panel 1969 DTaP/Tdap/Td Vaccine (1 - Tdap) 02/01/1980 Hepatitis B Screening 1987 Regular Well Visit/Exam 18-64 1987 Pneumococcal vaccine <65 (1 of 2 - PCV) 02/01/1988 Zoster Vaccine (1 of 2) 2019 Breast Cancer Screening-Mammogram 03/14/2021 021, 11/05/2016 Hemoglobin A1C 04/03/2022 10/01/2021, 10, 07/05/2020 eGFR 10/13/2022 10/13/2021, 10/01/2021 Covid-19 Vaccine ( - season) 2023 Influenza Vaccine (#1) 2023 Procedures Procedure Name Priority Date/Time Associated Diagnosis Comments EGFR Routine 10/13/2021 5:17 AM CDT HEMOGLOBIN A1C Routine 10/01/2021 3:29 PM CDT Preop testing SCREENING MAMMOGRAM 2D BILATERAL Routine 11/05/2016 12:00 AM CDT from Last 3 Months or Most Recently Relevant to Health Maintenance Results * eGFR (10/13/2021 5:17 AM CDT) eGFR 105 mL/min/1. 73 m2 [facility] Comment: Interpretive Data Reference Interval Normal >/= [...] AM CDT 10/13/2021 5:58 AM CDT us Dvaid Padilla MD LAB BLOOD ORDERABLES Fin al Result [facility] [address] Department [place] [address] * (ABNORMAL) Hemoglobin A1c (10/01/2021 3:29 PM CDT) Hgb A1C 6.8(H) 4.0 - 5.6 % [facility] Estimated Average Glucose 148 mg/dL [facility] Comment: The ADA recommends reporting an estimated Average Glucose (eAG) with all Hemoglobin A1c results using the equation derived from a study of 507 normal and diabetic adults. Minority populations were underrepresented and children were not included. (Diabetes Care 31:6167-0160, 2008). The eAG is not equivalent to a fasting glucose. Blood 10/01/2021 3:29 PM CDT 10/01/2021 3:29 PM CDT us Lucie Contreras NP LAB BLOOD ORDERABLES Fi nal Result [facility] [address] Department [place] [address] * Screening Mammogram 2D Bilateral (11/05/2016 12:00 AM CDT) Anatomical Region Laterality Modality Breast Bilateral Mammography 11/05/2016 5:36 PM CDT Narrative 11/05/2016 5:36 PM CDT - SCREENING MAMM BI BILATERAL DIGITAL SCREENING MAMMOGRAM WITH CAD: 11/05/2016 CLINICAL: Routine screening. Routine checkup. Patient has no complaints. Comparison is made to exams dated: 07/24/2008 and 01/25/[address] [facility]. There are scattered fibroglandular elements in both breasts. Current study was also evaluated with a Computer Aided Detection (CAD) system. No significant masses, calcifications, or other findings are seen in either breast. There has been no significant interval change. IMPRESSION: NEGATIVE There is no mammographic evidence of malignancy. A 1 year screening mammogram is recommended. The patient will be contacted by letter. Davida Dias M.D., cro/delmis:11/11/2016 07:36:57 copy to: Pari Garcia, ph: [phone], fax: [phone] letter sent: Normal Exam Mammogram BI-RADS: 1 Negative Radiologist: DAVIDA DIAS Attending: LUCIANO JACSKON Requesting: LUCIANO JACKSON Requesting Requesting ID: [id number] Attending Attending ID: [id number] Completed Time: 11/05/2016 12:36 AM Dictated Time: N/A Transcribed Time: 11/11/2016 08:22 AM Signed by: DAVIDA DIAS on 11/11/2016 08:22 AM Report To 1 ID: [id number] Report To 1 Name: PARI GARCIA Report [...] made to exams dated: 07/24/2008 and 01/25/[address] [facility]. There are scattered fibroglandular elements in both breasts. Current study was also evaluated with a Computer Aided Detection (CAD) system. No significant masses, calcifications, or other findings are seen in either breast. There has been no significant interval change. IMPRESSION: NEGATIVE There is no mammographic evidence of malignancy. A 1 year screening mammogram is recommended. The patient will be contacted by letter. Davida Dias M.D. [facility]/penrad:11/11/2016 07:36:57 copy to: Pari Radha, ph: [phone], fax: [phone] letter sent: Normal Exam Mammogram BI-RADS: 1 Negative Radiologist: DAVIDA DIAS Attending: LUCIANO JACKSON Requesting: LUCIANO JACKSON Requesting Requesting ID: [id number] Attending Attending ID: [id number] Completed Time: 11/05/2016 12:36 AM Dictated Time: N/A Transcribed Time: 11/11/2016 08:22 AM Signed by: DAVIDA DIAS on 11/11/2016 08:22 AM Report To 1 ID: [id number] Report To 1 Name: RADHAPARI Report To 1 FAX: Report To 2 ID: Report To 2 Name: , Report To 2 FAX: Report To 3 ID: Report To 3 Name: , Report To 3 FAX: NextGen Order #: Luciano Jackson MD IMG MAMMO PROCEDURES Edited Re sult - Final from Last 3 Months or Most Recently Relevant to Health Maintenance Insurance [employer] O[employer] Member Subscriber Plan / Payer (Ef fective 2020-Present) Name:Karina Chavez Relation to Subscriber:Self Name:Karina Chavez Payer ID:[id number] (NAIC) Type:[employer] Address: [address] [place] [address] [employer] O[employer] Member Subscriber Plan / Payer (Ef fective 2020-Present) Name:Karina Chavez Relation to Subscriber:Self Name:Karina Chavez Payer ID:[id number] (NAIC) Type:[employer] Address: [address] [place] [address] [employer] OOS Member Subscriber Plan / Payer (Ef fective 2020-Present) Name:Karina Chavez Relation to Subscriber:Self Name:Karina Chavez Payer ID:[id number] (NAIC) Type:[employer] Address: [facility] [address] [place] [id number] Advance Directives For more information, please contact: [phone] * Full Code (Latest Code Status on File) Date Activated Date Inactivated Comments 10/12/2021 12:50 PM 10/14/2021 7:37 PM Care Teams Hydropulper Operator Relationship Specialty Start Date End Date Bernie Joe NP [address] [place] [address] [place] [address] PCP - General Nurse Practitioner 07/02/21 David Padilla MD [address] [place] [address] [place] [address] Consulting Physician Colon and Rectal Surgery 10/14/21
--- OUTSIDE RECORDS SUMMARY | 2024-06-13 07:55 | XMS_ITS | CONTINUITY OF CARE DOCUMENT ---
Author Name todd brooks Address Unknown Organization [facility] Address [address] [facility] [address] [place] [address] Phone [phone] Care Team Providers Care Best Worker Name Role Phone Kiya Morse MD Unavailable ANTONIO SORENSON Unavailable [phone] ANTONIO SORENSON Unavailable [phone] PROBLEMS Condition Status Date Provider Notes Chest pain active Armando Ahmedzai Fatigue active Armando Ahmedzai Diabetes mellitus, type 2 active Armando Ahmed staci Exposure to COVID-19 coronavirus active Dee z Ahmedzai Tachycardia active Armando Ahmedzai Hyperlipidemia active Armando Ahmedzai Essential hypertension active Armando Ahmedzai Anti-nuclear factor positive completed 202 04/04/15 - George Godinez SOB, pulmonary fibrosis on C T 05/2021 active George Godinez ENCOUNTERS Date Type Provider Location Encounter Diagnosis - In-person encounter Office Visit Kiya Morse MD [facility] - In-person encounter Office Visit Kiya Morse MD [facility] - In-person encounter Office Visit Kiya Morse MD [facility] Anti-nuclear factor positiveSOB, pulmonary fibrosis on CT 05/2021 - In-person encounter Office Visit Kiya Morse MD [facility] VITAL SIGNS Date Observation Value Provider [...] blood pressure, diastolic 85 mm[Hg] Ca therine Barnard blood pressure, systolic 134 mm[Hg] Cat herine Barnard oxygen saturation, oximetry 98 % Winter Barnard respiratory rate E&M 16 /min Catheri ne Nicolas pulse rate 89 /min Winter Nicolas weight E&M 163 [lb_av] Winter Nicolas height E&M 64 [in_i] Winter Barnard blood pressure, cuff size regular Ca therine [...] Nicolas atorvastatin 40 mg tablet active Winter Barnard SOCIAL HISTORY Date Observation Value Provider smoking [...] Payer name Policy type / Coverage type [place] red green party ID [id number] 1 ADVANCE DIRECTIVES Name Date DISCUSSED - NO DECISION MADE TREATMENT PLAN Date Name Performer [id number],S, Armando Susanmartinza i [id number],B, Armando Burdenza i [id number],S, Armando Susanmedza i [id number],S, Armando Susanmedza i [id number],S, Armando Susanmedza i [id number],B, Armando Susanmedza i [id number],S, Armando Davismedza i [id number],S, Armando Ahmedza i [id number],S, Armando Us i [id number],S, Armando Us i [id number],S, George Godinez [id number],S, George Godinez [id number],S, George Godinez [id number],S, George Godinez [id number],S, George Godinez [id number],S, George Godinez [id number],S, Armando Us i [id number],S, Armando Us i [id number],S, Armando Us i [id number],S, Armando Us i [id number],S, Armando Us i [id number],S, Armando Us i Cardiology: H er updated [...] succinate) ..... Take 1 tablet daily [facility] Cardiology: Her updated medication list for this problem includes: Lisinopril 5 Mg Tablet (Lisinopril) Mounjaro 5 Mg/0.5 Ml Pen Injector (Tirzepatide) Metformin 500 Mg Tablet (Metformin) [facility] Cardiology: H er updated medication list for [...]
--- OUTSIDE RECORDS SUMMARY | 2024-06-13 07:56 | XMS_ITS | Clinical Summary ---
Author Organization [facility] [employer] Address [address] [facility] [place] [address] Care Team Providers Care Software Application Tester Name Role Phone Ronda Ramachandran MD Unavailable [phone] Bernie JoeFILTER TANK TENDER HELPER Primary Care Provider + Source Comments [facility] [employer],non-owned Affiliates and Associated Physician Practices is amultiple site organization consisting of ambulatory clinics and hospital sitesin [place], [place], [place] and [place]. This disclosure is being madepursuant to the Care Everywhere program and may not contain all information available regarding this patient. Last updated 17.[facility] [employer] Allergies No known active allergies Medications * Be aware that medications may not be up to date on this document. Alwaysverify current medications with the patient. lisinopril (PRINIVIL; ZESTRIL) 20 MG tablet Take 20 mg by mouth once daily Active OtherIndications: control Reasons: control Active atorvastatin (LIPITOR) 40 MG tablet TAKE 1 TABLET DAILY 0 Active ONETOUCH VERIO test strip 0 Active levonorgestrel-et hinyl estradiol (SEASONALE; JOLESSA; QUASENSE) tablet 0 Active metFORMIN (GLUCOPHAGE) 500 MG tabletIndications :Controlled type 2 diabetes mellitus without complication, without long-term current use of insulin (HCC) Take 1 (one) tablet by mouth once daily 90 tablet 1 Active metoprolol tartrate (LOPRESSOR) 25 MG tabletIndications :Essential hypertension Take 1 (one) tablet by mouth 2 times daily 180 tablet 1 Active Active Problems Problem Noted Date Diagnosed [...] Date Smoking Tobacco: Never Smokeless Tobacco: Never Comments No Sex and Gender Information Value Date Recorded Sex Assigned at Not on file Legal Sex Female 2:27 PM CDT Gender Identity Not on file [...] Per Patient) MAMMOGRAM 03/14/2022 03/14/2020 COVID-19 VACCINE ( season) 2023 DEPRESSION SCREENING 02/29/2024 DIABETES - URINE PROTEIN SCREENING 02/29/2024 INFLUENZA VACCINE (Season Ended) 2024 HIV SCREENING Completed 12/02/2019 (Done Outside Per [...] MAMMO BILAT SCREENING Routine 03/14/2020 8:00 AM ASSISTANT SERVICE MANAGER Encounter for screening breast examination HEPATITIS C ANTIBODY Routine 01/02/2020 4:19 PM ASSISTANT SERVICE MANAGER Encounter for HCV screening test for low [...] Resulting Agency Comment [facility] [address] [facility] [id number] us Mili Estevez MD LAB - CHEMISTRY ORDERABLE S Final Result [facility] INSURANCE BILL [address] [place] [address] * (ABNORMAL) COMPREHENSIVE METABOLIC PANEL (12/17/2020 1:13 [...] Resulting Agency Comment Lab Testing performed at: [facility] [address] [facility] [id number] us Mili Estevez MD LAB - CHEMISTRY ORDERABLE S Final Result [facility] INSURANCE BILL [address] [place] [address] * MAMMO BILAT SCREENING (03/14/2020 8:00 AM ASSISTANT SERVICE MANAGER) Anatomical Region Laterality Modality Breast Bilateral Mammography 03/14/2020 12:2 7 PM ASSISTANT SERVICE MANAGER Impressions 03/14/2020 12:32 PM ASSISTANT SERVICE MANAGER IMPRESSION: No mammographic evidence of malignancy. No change from the prior. RECOMMENDATION: Screening mammography in one year, pending no interval breast concerns. Patient will be notified of the results by lay letter. BI-RADS CATEGORY 1: NEGATIVE. This report was electronically signed by MOR OLEARY on 03/14/2020 12:32 PM . Narrative 03/14/2020 12:32 PM ASSISTANT SERVICE MANAGER EXAM: DIGITAL MAMMO BILAT SCREENING WITH 3-D [...] the prior. Ronda Ramachandran MD MAMMO ORDERABLES Final Re sult * HEPATITIS C ANTIBODY (01/02/2020 4:19 PM ASSISTANT SERVICE MANAGER) Hepatitis C Antibody Non-react tete Non-reac tive 01/02/2020 5:10 PM ASSISTANT SERVICE MANAGER [facility] Comment:Hepatitis C Antibody screen indicates [...] Lab Venipuncture / Unknown 01/02/2020 4:19 PM ASSISTANT SERVICE MANAGER 01/02/2020 4:25 PM ASSISTANT SERVICE MANAGER Ronda Ramachandran MD LAB - CHEMISTRY ORDERABLE S Final Result [facility] [address] [place] [address], [facility] [phone] from Last 3 Months or Most Recently Relevant to Health Maintenance Insurance ANTHEM ANTHEM Care Teams Software Application Tester Relationship Specialty Start Date End Date Bernie Joe APRN-FILTER TANK TENDER HELPER [address] [address] PCP - General 08/24/21 Ronda Ramachandran MD [address] [facility] [place] [address] Resident - PCP Internal Medicine 07/21/20
[2024-06-13 20:11] LABS: Alanine Aminotransferase 39 U/L (6-35); Albumin Level 4.6 g/dL (3.5-5.1); Alkaline Phosphatase 104 U/L (38-126); Anion Gap 7 mmol/L (4-12); Aspartate Amino Transferase 103 U/L (14-36); Bilirubin,Total 0.5 mg/dL (0.2-1.3); Blood Urea Nitrogen 12 mg/dL (7-17); Calcium 9.1 mg/dL (8.4-10.2); Carbon Dioxide 29 mmol/L (22-30); Chloride 105 mmol/L (98-107); Cholesterol 174 mg/dL (0-200); Estimated Glomerular Filt Rate > 60; Glucose 91 mg/dL (65-110); HDL Direct 65 mg/dL; Potassium 4.1 mmol/L (3.4-5.0); Sodium 141 mmol/L (137-145); Triglycerides 131 mg/dL (<150)
[2024-06-13 20:22] LABS: LDL Cholesterol Direct 71 mg/dL
[2024-06-13 20:39] LABS: Hemoglobin A1C 5.9 % (<5.7)
[2024-06-13 21:12] LABS: Creatinine Urine 137.1 mg/dL
[2024-06-13 21:18] LABS: MALB Creatinine Ratio 5.8 mg/g (0-30); Microalbumin Urine Random 7.9 mg/L (0-16.7)
== END 2024-06-13 07:51 | disposition home or self-care (01) ==
PROVIDERS: PCP Nurse Practitioner Adult Health; Visit Provider Nurse Practitioner Adult Health
DX: E11.9 Type 2 diabetes mellitus without complications (principal); E55.9 Vitamin D deficiency, unspecified
CPT/HCPCS: 36415; 80053; 80061; 82043; 82306; 82565; 83036

== ENCOUNTER 2024-06-15 11:39 | Outpatient (CLI) | payer BC, SELFPAY ==
--- NOTE | ~2024-06-15 | US_ITS ---
Limited Abdominal Sonogram: Real-time sonographic imaging of the right upper quadrant was performed. Clinical History: Abnormal serum enzyme levels Findings: The liver appears mildly echogenic, with no evidence of mass lesion or bile duct dilatatio n. Main portal vein demonstrates normal direction of flow. The gallbladder is well distended, and tien ears normal with no evidence of gallstone or wall thickening. The common bile duct measures 2 mm. Th e visualized pancreas, aorta, and IVC are unremarkable. Impression: Possible mild fatty infiltration of liver. Reviewed, dictated and finalized at location M. Impression: Possible mild fatty infiltration of liver.
== END 2024-06-15 11:40 | disposition home or self-care (01) ==
LOC: MICIMG 11:39
PROVIDERS: PCP Nurse Practitioner Adult Health; Visit Provider Nurse Practitioner Adult Health
DX: R74.8 Abnormal levels of other serum enzymes (principal)
CPT/HCPCS: 76705

== ENCOUNTER 2024-06-15 12:24 | Outpatient (CLI) | payer BC, SELFPAY ==
--- OUTSIDE RECORDS SUMMARY | 2024-06-15 12:27 | XMS_ITS | Referral Summary ---
Author Organization [facility] Address [address] [place] [address] Care Team Providers Care Dean Of Girls Name Role Phone Bernie Joe NP Primary Care Provider [phone] David Padilla MD Unavailable [phone] Allergies No known active allergies Medications metFORMIN [...] (10/29/2021 2:43 PM CDT): Scheduled follow-up at [facility] post COVID, acute lung injury. Participating in [...] How often do you attend chur or methodist services? More than 4 times per year 10/13/2021 Do you belong to any clubs o r organizations such as latter-day groups, unions, fraternal or athletic groups, or [...] place to sleep or slept in a senior care (including now)? No 10/13/2021 Comments Unknown Sex [...] CDT) eGFR 105 mL/min/1. 73 m2 [facility] Comment: Interpretive Data Reference Interval [...] ORDERABLES Fin al Result Performing Organization Address [facility] Co de Phone Number [facility] [address] [place] [address] * (ABNORMAL) Hemoglobin A1c (10/01/2021 3:29 PM CDT) Hgb A1C 6.8(H) 4.0 - 5.6 % [facility] Estimated Average Glucose 148 mg/dL [facility] Comment: The ADA recommends reporting an estimated Average Glucose (eAG) with all Hemoglobin A1c results using the equation derived from a study of 507 normal and diabetic adults. Minority populations were underrepresented and children were not included. (Diabetes Care 31:0275-1503, 2007). The eAG is not equivalent to a fasting glucose. Blood 10/01/2021 3:29 PM CDT 10/01/2021 3:29 PM CDT us Lucie Contreras NP LAB BLOOD ORDERABLES Fi nal Result Performing Organization Address [facility] Co de Phone Number [facility] [address] [place] [address] * Screening Mammogram 2D Bilateral (11/05/2016 12:00 AM CDT) Anatomical Region Laterality Modality Breast Bilateral Mammography 11/05/2016 5:36 PM CDT Narrative 11/05/2016 5:36 PM CDT - SCREENING MAMM BI BILATERAL DIGITAL SCREENING MAMMOGRAM WITH CAD: 11/05/2016 CLINICAL: Routine screening. Routine checkup. Patient has no complaints. Comparison is made to exams dated: 07/24/2008 and 01/25/2007 [facility]. There are scattered fibroglandular elements in both [...] be contacted by letter. La Dias M.D. microsoft crm developer/penrad:11/11/2016 07:36:57 copy to: Pari Garcia, ph: [phone], fax: [phone] letter sent: Normal Exam Mammogram BI-RADS: 1 Negative Radiologist: LA DIAS Attending: LUCIANO JACKSON Requesting: LUCIANO JACKSON Requesting Requesting ID: [id number] Attending Attending ID: [id number] Completed Time: 11/05/2016 12:36 AM Dictated Time: N/A Transcribed Time: 11/11/2016 08:22 AM Signed by: LA DIAS on 11/11/2016 08:22 AM Report To 1 ID: [id number] Report To 1 Name: PARI GARCIA Report [...] made to exams dated: 07/24/2008 and 01/25/2007 [facility]. There are scattered fibroglandular elements in both [...] be contacted by letter. La Dias M.D. microsoft crm developer/penrad:11/11/2016 07:36:57 copy to: Pari Garcia, ph: [phone], fax: [phone] letter sent: Normal Exam Mammogram BI-RADS: 1 Negative Radiologist: LA DIAS Attending: LUCIANO JACKSON Requesting: LUCIANO JACKSON Requesting Requesting ID: [id number] Attending Attending ID: [id number] Completed Time: 11/05/2016 12:36 AM Dictated Time: N/A Transcribed Time: 11/11/2016 08:22 AM Signed by: LA DIAS on 11/11/2016 08:22 AM Report To 1 ID: [id number] Report To 1 Name: PARI GARCIA Report To 1 FAX: Report To 2 ID: Report To 2 Name: , Report To 2 FAX: Report To 3 ID: Report To 3 Name: , Report To 3 FAX: NextGen Order #: Luciano Jackson MD IMG MAMMO PROCEDURES Edited Re sult - Final from Last 3 Months or Most Recently Relevant to Health Maintenance Insurance [employer] Advance Directives For more information, please contact: [phone] * Full Code (Latest Code Status on File) Date Activated Date Inactivated Comments 10/12/2021 12:50 PM 10/14/2021 7:37 PM Care Teams Dean Of Girls Relationship Specialty Start Date End Date Bernie Joe NP [address] [place] [address] [place] [address] PCP - General Nurse Practitioner 07/02/21 David Padilla MD [address] [place] [address] [place] [address] Consulting Physician Colon and Rectal Surgery 10/14/21
--- OUTSIDE RECORDS SUMMARY | 2024-06-15 12:27 | XMS_ITS | CONTINUITY OF CARE DOCUMENT ---
Author Name todd brooks Address Unknown Organization [facility] Address [address] [facility] [address] [place] [address] Phone [phone] Care Team Providers Care Cert Pharmacy Tech Name Role Phone Kiya Morse MD Unavailable [phone] ANTONIO SORENSON Unavailable [phone] ANTONIO SORENSON Unavailable [phone] PROBLEMS Condition Status Date Provider Notes Chest [...] In-person encounter Office Visit Kiya Morse MD [facility] - In-person encounter Office Visit Kiya Morse MD [facility] - In-person encounter Office Visit Kiya Morse MD [facility] Anti-nuclear factor positiveSOB, pulmonary fibrosis on CT 05/2021 - In-person encounter Office Visit Kiya Morse MD [facility] VITAL SIGNS Date Observation Value Provider [...] blood pressure, diastolic 85 mm[Hg] Ca therine [place] blood pressure, systolic 134 mm[Hg] Cat herine [place] oxygen saturation, oximetry 98 % Winter [place] respiratory rate E&M 16 /min Catheri ne Nicolas pulse rate 89 /min Iwnter Nicolas weight E&M 163 [lb_av] Winter Nicolas height E&M 64 [in_i] Winter [place] blood pressure, cuff size regular Ca therine [...] Nicolas atorvastatin 40 mg tablet active Winter [place] SOCIAL HISTORY Date Observation Value Provider smoking [...] Payer name Policy type / Coverage type [place] red green party ID [id number] 1 ADVANCE DIRECTIVES Name Date DISCUSSED - NO DECISION MADE TREATMENT PLAN Date Name Performer [id number],S, Armando Susanmartinza i [id number],B, Armando Burdenza i [id number],S, Armando Susanmedza i [id number],S, Armando Susanmedza i [id number],S, Armando Susanmedza i [id number],B, Armando Susanmedza i [id number],S, Armando Davismedza i [id number],S, Armando Ahmedza i [id number],S, Armando Us i [id number],S, Armando Us i [id number],S, George Godinez [id number],S, George Godinez [id number],S, George Godinez [id number],S, George Godinez [id number],S, George Godinez [id number],S, George Godinez [id number],S, Armando Us i [id number],S, Armando Us i [id number],S, Armando Us i [id number],S, Armando Us i [id number],S, Armando Us i [id number],S, Armando Us i Cardiology: H er updated [...] succinate) ..... Take 1 tablet daily Armando [facility] Cardiology [facility] Cardiology: Her updated medication list for this problem includes: Lisinopril 5 Mg Tablet (Lisinopril) Mounjaro 5 Mg/0.5 Ml Pen Injector (Tirzepatide) Metformin 500 Mg Tablet (Metformin) [facility] Cardiology: H er updated medication list [...] Armando Burdenzai Cardiology Armando Burdenzamacy Cardiology Armando uBrdenzamacy Cardiology Armando Burdenzai Telehealth Armando Sung Telehealth Armando Sung Telehealth Armando Sung Telehealth Armando Sung Telehealth Armando Sung Cardiology [place] Cardiology [place] [facility] [place] Cardiology [place] [facility] [place] [facility] [place] Cardiology Armando Burdenzai Cardiology Armanod Burdenzamacy Cardiology Armando Sung Cardiology Armando Sung Cardiology Armando Burdenzamacy Cardiology Armando Sung Date Name Monitor - Telemetry (Mobile Cardiac) HISTORY OF PROCEDURES Procedure Date Procedure Name Provider Procedure Notes S tatus EKG Kiya Morse MD completed EKG Kiya Morse MD completed
--- OUTSIDE RECORDS SUMMARY | 2024-06-15 12:27 | XMS_ITS | Clinical Summary ---
Author Organization [facility] Address [address] [place] [address] Care Team Providers Care Acute Dialysis Nurse Name Role Phone Bernie Joe NP Primary Care Provider [phone] David Padilla MD Unavailable [phone] Allergies No known active allergies Medications metFORMIN [...] (10/29/2021 2:43 PM CDT): Scheduled follow-up at [facility] post COVID, acute lung injury. [...] often do you attend chur ch or anabaptist services? More than 4 times per year 10/13/2021 Do you belong to any clubs o r organizations such as mandaen groups, unions, fraternal or athletic groups, or [...] to sleep or slept in a senior living (including now)? No 10/13/2021 Comments Unknown Sex [...] AM CDT) eGFR 105 mL/min/1. 73 m2 [facility] Comment: Interpretive Data Reference Interval Normal >/= [...] MD LAB BLOOD ORDERABLES Fin al Result [facility] [address] Department [place] [address] * (ABNORMAL) Hemoglobin A1c (10/01/2021 3:29 PM CDT) Hgb A1C 6.8(H) 4.0 - 5.6 % [facility] Estimated Average Glucose 148 mg/dL [facility] Comment: The ADA recommends reporting an estimated Average Glucose (eAG) with all Hemoglobin A1c results using the equation derived from a study of 507 normal and diabetic adults. Minority populations were underrepresented and children were not included. (Diabetes Care 31:1308-4196, 2008). The eAG is not equivalent to a fasting glucose. Blood 10/01/2021 3:29 PM CDT 10/01/2021 3:29 PM CDT us Lucie Contreras NP LAB BLOOD ORDERABLES Fi nal Result [facility] [address] Department [place] [address] * Screening Mammogram 2D Bilateral (11/05/2016 12:00 AM CDT) Anatomical Region Laterality Modality Breast Bilateral Mammography 11/05/2016 5:36 PM CDT Narrative 11/05/2016 5:36 PM CDT - SCREENING MAMM BI BILATERAL DIGITAL SCREENING MAMMOGRAM WITH CAD: 11/05/2016 CLINICAL: Routine screening. Routine checkup. Patient has no complaints. Comparison is made to exams dated: 07/24/2008 and 01/25/2007 [facility]. There are scattered fibroglandular elements in both [...] cro/delmis:11/11/2016 07:36:57 copy to: Pari Garcia, ph: [phone], fax: [phone] letter sent: Normal Exam Mammogram BI-RADS: 1 Negative Radiologist: DAVIDA DIAS Attending: LUCIANO JACKSON Requesting: LUCIANO JACKSON Requesting Requesting ID: [id number] Attending Attending ID: [id number] Completed Time: 11/05/2016 12:36 AM Dictated Time: N/A Transcribed Time: 11/11/2016 08:22 AM Signed by: DAVIDA DIAS on 11/11/2016 08:22 AM Report To 1 ID: [id number] Report To 1 Name: PARI GARCIA Report [...] made to exams dated: 07/24/2008 and 01/25/2007 [facility]. There are scattered fibroglandular elements in both [...] be contacted by letter. Davida Dias M.D. [facility]:11/11/2016 07:36:57 copy to: Pari Radha, ph: [phone], fax: [phone] letter sent: Normal Exam Mammogram BI-RADS: 1 Negative Radiologist: DAVIDA DIAS Attending: LUCIANO JACKSON Requesting: LUCIANO JACKSON Requesting Requesting ID: [id number] Attending Attending ID: [id number] Completed Time: 11/05/2016 12:36 AM Dictated Time: N/A Transcribed Time: 11/11/2016 08:22 AM Signed by: DAVIDA DIAS on 11/11/2016 08:22 AM Report To 1 ID: [id number] Report To 1 Name: RADHAPARI Report To 1 FAX: Report To 2 ID: Report To 2 Name: , Report To 2 FAX: Report To 3 ID: Report To 3 Name: , Report To 3 FAX: NextGen Order #: Luciano Jackson MD IMG MAMMO PROCEDURES Edited Re sult - Final from Last 3 Months or Most Recently Relevant to Health Maintenance Insurance DIRAmed OOS DIRAmed OOS DIRAmed OOS Member Subscriber Plan / Payer (Ef fective 2020-Present) Name:Karina Chavez Relation to Subscriber:Self Name:Karina Chavez Payer ID:[id number] (NAIC) Type:FAISAL ISAACS Address: [id number] [place] [id number] Advance Directives For more information, please contact: [phone] * Full Code (Latest Code Status on File) Date Activated Date Inactivated Comments 10/12/2021 12:50 PM 10/14/2021 7:37 PM Care Teams Acute Dialysis Nurse Relationship Specialty Start Date End Date Bernie Joe NP [address] [place] [address] [place] [address] PCP - General Nurse Practitioner 07/02/21 David Padilla MD [address] [place] [address] [place] [address] Consulting Physician Colon and Rectal Surgery 10/14/21
--- OUTSIDE RECORDS SUMMARY | 2024-06-15 12:28 | XMS_ITS | Clinical Summary ---
Author Organization [facility] Address [address] [facility] [place] [address] Care Team Providers Care Microbiology Soil Scientist Name Role Phone Ronda Ramachandran MD Unavailable Bernie JoeGROUND CREW LINES PERSON Primary Care Provider + Source Comments [facility],non-owned Affiliates and Associated Physician Practices is amultiple site organization consisting of ambulatory clinics and hospital sitesin [place], [place], [place] and [place]. This disclosure is being madepursuant to the Care Everywhere program and may not contain all information available regarding this patient. Last updated 17.[facility] Allergies No known active allergies Medications * [...] 50+ (1 of 2 - PCV) 02/01/1988 ZOSTER [...] MAMMO BILAT SCREENING Routine 03/14/2020 8:00 AM CLEAN ENERGY POLICY ANALYST Encounter for screening breast examination HEPATITIS C ANTIBODY Routine 01/02/2020 4:19 PM CLEAN ENERGY POLICY ANALYST Encounter for HCV screening test for low [...] Resulting Agency Comment Lab [facility] performed at: [facility] [address] [facility] [phone] us Mili Estevez MD LAB - CHEMISTRY ORDERABLE S Final Result [facility] INSURANCE BILL [address] [place] [address] * (ABNORMAL) COMPREHENSIVE METABOLIC PANEL (12/17/2020 1:13 [...] Resulting Agency Comment [facility]: [facility] [address] [facility] [id number] Mili Estevez MD LAB - CHEMISTRY ORDERABLE S Final Result [facility] INSURANCE BILL [address] [place] [address] * MAMMO BILAT SCREENING (03/14/2020 8:00 AM CLEAN ENERGY POLICY ANALYST) Anatomical Region Laterality Modality Breast Bilateral Mammography 03/14/2020 12:2 7 PM CLEAN ENERGY POLICY ANALYST Impressions 03/14/2020 12:32 PM CLEAN ENERGY POLICY ANALYST IMPRESSION: No mammographic evidence of malignancy. No change from the prior. RECOMMENDATION: Screening mammography in one year, pending no interval breast concerns. Patient will be notified of the results by lay letter. BI-RADS CATEGORY 1: NEGATIVE. This report was electronically signed by MOR OLEARY on 03/14/2020 12:32 PM . Narrative 03/14/2020 12:32 PM CLEAN ENERGY POLICY ANALYST EXAM: DIGITAL MAMMO BILAT SCREENING WITH 3-D [...] * HEPATITIS C ANTIBODY (01/02/2020 4:19 PM CLEAN ENERGY POLICY ANALYST) Hepatitis C Antibody Non-react tete Non-reac tive 01/02/2020 5:10 PM CLEAN ENERGY POLICY ANALYST [facility] Comment:Hepatitis C Antibody screen indicates [...] Lab Venipuncture / Unknown 01/02/2020 4:19 PM CLEAN ENERGY POLICY ANALYST 01/02/2020 4:25 PM CLEAN ENERGY POLICY ANALYST Ronda Ramachandran MD LAB - CHEMISTRY ORDERABLE S Final Result [facility] [address] [place] [address], [facility] [phone] from Last 3 Months or Most Recently Relevant to Health Maintenance Insurance ANTHEM ANTHEM Care Teams Microbiology Soil Scientist Relationship Specialty Start Date End Date Bernie Joe APRN-GROUND CREW LINES PERSON [address] [address] PCP - General 08/24/21 Ronda Ramachandran MD [address] OF [facility] [place] [address] Resident - PCP Internal Medicine 07/21/20
--- OUTSIDE RECORDS SUMMARY | 2024-06-15 12:28 | XMS_ITS | Data Portability ---
Author Organization [facility] [employer], Main Office Address [address] [place] [address] Assessment No assessment recorded. Plan of Treatment Reminders Order Date Submit Date Provider Last Modified By Organization Details Last Modified Time Details Appointments None recorded. Lab hemoglobin A1C, fingerstick [address], [place], [address], 11:23:39 Referral None recorded. Procedures None recorded. Surgeries None recorded. Imaging None recorded. Medication Orders None recorded. Patient TargetsNo targets recorded. Patient InstructionsNo instructions recorded. Reason for Referral None Reported. Results Created Date Observation Date Name Description Value Unit Range Abnormal Flag Note LastModifiedBy Organization Detail LastModifiedTime 03/04/1903/04/2022 hemog lobin A1C, finge rstic k HgbA1C 8 Not Available [facility] [address], [place], [address], 03/03/2022 17:06:33 06/02/19 23 06/01/2022 hemog lobin A1C, finge rstic k HgbA1C 6.8 Not Available [address], [place], [address], 06/01/2022 09:01:44 03/17/19 23 XR, hand, 3 or more view No observ ation record ed. [id number] [facility] [place] [address], [place], [address], 04/29/2022 00:29:27 Result Notes None recorded. Problems Name Problem SNOMED Code Status Onset Date Resolution Date Notes Provider Name and Address Organization Details Recorded Time Mass of thoracic vertebrae 33372306300 9108 Completed 202103/23/2021 Not Available [facility] 3 00:27:20 Anti-nucl ear factor detected 231307524 Active 2021 Not Available [facility] 3 00:27:21 Traction bronchiec tasis 12382038 Active 2021 Not Available [facility] 3 00:27:21 Dyspnea 447358045 Active 2021 Not Available [facility] 3 00:27:21 Impaired exercise tolerance 601989097 Active 2021 Not Available [facility] 3 00:27:21 Loss of hair 576268644 Active 2020 Not Available [facility] 3 00:27:21 Normal grief reaction 542701173 Active 2020 Not Available [facility] 3 00:27:21 History of SARS-CoV- 2 80346460036 3483348 Active 2020 Not Available [facility] 3 00:27:21 Chest pain 54071973 Active 2021 Not Available [facility] 3 00:27:22 Tachycard ia 6887552 Active 2021 Not Available [facility] 3 00:27:22 Hypertens tete disorder 39702821 Active 2020 Not Available [facility] 3 00:27:22 D-dimer above reference range 927755029 Active 2021 Not Available [facility] 3 00:27:22 Fibrosis of lung 52022779 Active 2021 Not Available [facility] 3 00:27:22 Hyperlipi demia 18229348 Active 2020 Not Available [facility] 3 00:27:22 Diabetes mellitus 22784811 Active 2020 Not Available Count includes the [facility] 3 00:27:22 Fatigue 18625231 Active 2021 Not Available Count includes the [facility] 3 00:27:23 Pneumonia caused by SARS-CoV- 2 15420447083 4379650 Active 2020 Not Available Count includes the [facility] 3 00:27:23 Pain of left hand 96829037473 9103 Active 2022 Gladys Durbin RMVanna null, [facility] 3 14:51:23 Bilateral carpal tunnel syndrome 59156420763 465735 Active 2022 Gladys Durbin RMA null, [facility] 3 14:51:31 Trigger finger of left hand 45275984771 083639 Active 2022 Gladys Durbin RMA null, [facility] 3 14:51:41 Type 2 diabetes mellitus without complicat ion 807094935 Active 2022 Panchito Burkett MD [address], [place], [address] , [facility] 3 09:01:35 Interstit ial lung disease 576483687 Active 2022 [facility] [address], [place], [address] , [facility] 3 10:22:44 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 Procedures Surgical History None recorded. Imaging Results Imaging Date Name Status LastModified by Organiz [facility] Details LastModified Time 03/17/2022 XR, hand, 3 or more view completed [id number] [facility] [place] [address], [place], [address], 04/29/2022 00:29:27 Procedure Notes None recorded. Medical [...] administe red by the provider 06/01 completed [facility]: [phone] [id number] 20 Not Available Not Available [...] Available No t Available [employer] Lucrecia 2 Rombauer active Not Available Not Available Not Available [...] % 98 % 86 /min 97.3 [degF] 98543.0 7 g 140 mm[Hg] 84 mm[Hg] Not Available Count includes the [facility] 3 00:27:02 Date Recorded Body mass index (BMI) Body height Pain severity - 0-10 verbal numeric rating [Score] - Reported Body weight Provider Name and Address Organization Details Last Updated DateTime 03/17/2022 28.3 kg/m2 162.56 cm 5 77577.74 g Not Available Count includes the [facility] 04/29/2022 00:27:04 Date Recorded Body height Body mass index (BMI) Body weight Pain severity - 0-10 verbal numeric rating [Score] - Reported Provider Name and Address Organization Details Last Updated DateTime 05/18/2022 162.56 cm 27.5 kg/m2 31913.78 g 1 Gladys Durbin [facility] [employer] [facility] 05/18/2022 14:49:06 Date Recorded Body height Body mass index (BMI) Body weight Body temperature Heart rate Oxygen saturation Oxygen saturation in Arterial blood by Pulse oximetry Systolic blood pressure Diastolic blood pressure Provider Name and Address Organization Details Last Updated DateTime 3 162.56 cm 29 kg/m2 56927.1 1 g 97.6 [degF] 81 /min 98 % 98 % 128 mm[Hg] 78 mm[Hg] Gisselle Zepeda [facility] [employer] [facility] 08:56:51 Date Recorded Body height Body mass index (BMI) Body weight Body temperature Heart rate Oxygen saturation Oxygen saturation in Arterial blood by Pulse oximetry Systolic blood pressure Diastolic blood pressure Provider Name and Address Organization Details Last Updated DateTime 3 162.56 cm 29.2 kg/m2 00708.7 g 96.6 [degF] 68 /min 99 % 99 % 120 mm[Hg] 68 mm[Hg] Sarah Santoro [facility] [employer] [facility] 3 10:03:13 Social History Question Answer Notes LastModified by Organizat ion Details LastModified Time Tobacco Smoking Status Never Smoker Not Available [facility] 04/29/2022 00:26:13 What Is Your Level Of Alcohol Consumption? None [email or web address] Information not available 08/25/2022 What Is Your Level Of Caffeine Consumption? Heavy [email or web address] Information not available 08/25/2022 In The 14 Days Before Symptom Onset, Have You Had Close Contact With A Laboratory-confir med COVID-19 While That Case Was Ill? No [id number] Information not available 04/29/2022 In The 14 Days Before Symptom Onset, Have You Had Close Contact With A Person Who Is Under Investigation For COVID-19 While That Person Was Ill? No [id number].08861 [id number] Information not available 04/29/2022 What Type Of Diet Are You Following? CARBOHYDRATE MIGRATION.41787 05264 Information not available 04/29/2022 What Was The Date Of Your Most Recent Tobacco Screening? 03/17/2022 [id number] Information not available 04/29/2022 Do You Have Any Pets? Yes Dog Inside MIGRATION.58497 11471 Information not available 04/29/2022 Do You Use Any Illicit Or Recreational Drugs? No MIGRATION.34294 46558 Information not available 04/29/2022 Have You Recently Traveled Abroad? No MIGRATION.28856 08323 Information not available 04/29/2022 Do You Or Have You Ever Used Any Other Forms Of Tobacco Or Nicotine? No MIGRATION.23868 19770 Information not available 04/29/2022 Sex: Unknown Functional Status Question Answer Note LastModified by Organizat ion Details LastModified Time What is your exercise level? Occasional [id number] Information not available 04/29/2022 Mental Status None recorded. Family History Relationship Description Onset Age of this Age Resolved Age Notes LastModified by Organization Details LastModified Time Father Hemochromato sis [id number] Not available 04/29/2022 00:26:28 Medical History No medical history recorded. Gynecological HistoryNo gynecological history recorded. Obstetrics History GPAL:G 0 P 0 0 0 0 Immunizations Vaccine Type Date Status Note Provider Nam e and Address Organization Details Recorded Time COVID-19, mRNA, LNP-S, PF, 30 mcg/0.3 mL dose 10/15/2020 completed Not Available [facility] 00:29:11 Past Encounters Encounter ID Performer Location Encounter Start Date Encounter Closed Date Diagnosis/Indication Diagnosis SNOMED-CT Code Diagnosis ICD10 Code Diagnosis Note [id number] [facility] [place] [address] 02/18/2021 00:00:00 02/18/2021 11:16:34 [id number] S_[facility] [place] [address] 03/23/2021 00:00:00 03/23/2021 12:29:24 [id number] [facility] Pul[facility] [place] [address] [place] [address] 03/25/2021 00:00:00 03/25/2021 13:32:54 [id number] S_[facility] [place] [address] [place] [address] 04/28/2021 00:00:00 04/28/2021 12:45:25 [id number] S_G [facility] [place] [address], [place] [address] 06/30/2021 00:00:00 06/30/2021 13:34:18 [id number] S_[facility] [place] [address] [place] [address] 08/25/2021 00:00:00 08/25/2021 14:32:34 [id number] S_[facility] [place] [address] [facility] [place] [address] 03/03/2022 00:00:00 03/03/2022 20:46:28 [id number] S_[facility] [place] [address] [place] [address] 03/17/2022 00:00:00 03/17/2022 15:59:10 [id number] Gavin Sylvester MD [facility] [place] [address] [place] [address] 05/18/2022 14:46:20 05/18/2022 15:54:37 Pain of left hand 5248546965 24896 M79.642 Bilateral carpal tunnel syndrome 0589930063 9128681 G56.02 patient will continue another month with the night bracing we will see her back if she gets recurrent trigger finger or she starts developing the recurrent nocturnal paresthesi as the numbing in the tingling and does not respond to the bracing Trigger fi nger of left hand 7677941315 3445659 M65.342 [id number] Panchito Burkett MD [facility] [place] [address], [place] [address] 06/01/2022 08:49:38 06/01/2022 09:08:39 Type 2 diabetes mellitus without complication 477419287 E11.9 A1C was 6.8% Continue same meds. F/u in 3 months. 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 4708502509 U09.9 Intubated 10/29/20PF T 03/2021 normalSix minute walk testing normalIn light of persistent symptoms, we have discussed the uncertain recovery of COVID19.En couraged exercise as toleratedD iscussed S/S that require emergent evaluation Fatigue 22859435 R53.83 REINA positivePr evious referral to [facility] Concerns Section Related Observation LastModified by Organization Detai ls LastModified Time None Recorded Concern Status LastModified by Organization Details LastModified Time None Recorded Advance Directives Directive None Recorded Payers Encounter Date Sequence Insurance Name Policy Number Policy Polo Covered Member ID Polo Member ID Guarantor Name 05/18/2022 1 [place] [id number] Karina Chavez [id number] Karina Chavez 06/01/2022 1 [place] [id number] Karina Chavez [id number] Karina Chavez 08/25/2022 1 [place] [id number] Karina Chavez [id number] Karina Chavez Notes Date Note Type Note Provider Name and Address Organization Details Recorded Time 05/18/2022 text/html patient had a le ft ring trigger finger left carpal tunnel we did injection and splinting she is feeling a lot better now the triggering is better than numbing and tingling is better comes in today for follow-up Gavin Sylvester MD [address] [place] [address], [facility] [address], [place], [address], [place] [facility] 05/18/2022 17:12:06 06/01/2022 text/html Here for f/u of A1C check. She is on the 7 mg of rybelsus. No tingling or numbness of feet no calluses or sores. Panchito Burkett MD [address] [facility], [facility] [address], [place], [address], [facility] [employer] 06/01/2022 09:09:58 08/25/2022 text/html Ms Chavez present s today to follow up on ILD/bronchiectasis, bvlv-HEHH-AaA-2 dyspnea, referralsShaquilino has seen the ILD clinic [...] unintentional weight loss. Sophie Perez, SHERIE-BC [address] [facility], [facility] [address], [place], [address], [facility] [employer] 08/25/2022 10:59:42 OBGyn Episode No OBEpisode recorded.
--- OUTSIDE RECORDS SUMMARY | 2024-06-15 12:28 | XMS_ITS | Data Portability ---
Author Organization Marc Murrieta L LC ([facility]) Address [address] [address] Assessment Encounter Date Assessment Date Assessment LastModified [...] with the patient via the patient portal. [email or web address] Not available 04/24/2024 09:17:16 Plan of Treatment Reminders Order Date Submit Date Provider Last Modified By Organization Details Last Modified Time Details Appointments None recorded. Lab hemoglobin A1C, fingerstic k 2024 025 [email or web address] [facility], [address] [place] [address], [facility] [address], [address], 09:17:49 Referral None recorded. Procedures None recorded. Surgeries None recorded. Imaging None recorded. Medication Orders None recorded. Patient TargetsNo targets recorded. Patient InstructionsNo instructions recorded. Reason for Referral None Reported. Results Created Date Observation Date Name Description Value Unit Range Abnormal Flag Note LastModifiedBy Organization Detail LastModifiedTime 04/26/1904/26/2024 hemog lobin A1C, finge rstic k HbA1C 6.3 Not Available [facility] [address], [address], 05/21/2024 14:59:44 Result Notes None recorded. Medical Equipment None Reported. Vitals None Recorded [...] SNOMED-CT Code Diagnosis ICD10 Code Diagnosis Note [id number] ROCKY CHOW MD MAIN OFFICE -- [facility] [address] [address] 04/24/2024 09:17:10 04/24/2024 09:31:26 Type 2 diabetes mellitus 53534073 E11.9 Health Concerns Section Related Observation LastModified by Organization Detai ls LastModified Time None Recorded Concern Status LastModified by Organization Details LastModified Time None Recorded Advance Directives Directive None Recorded Payers Encounter Date Sequence Insurance Name Policy Number Policy Polo Covered Member ID Polo Member ID Guarantor Name 04/24/2024 1 [employer] Karina Chavez [id number] Karina Chavez Notes Date Note Type Note Provider Name and Address Organization Details Recorded Time 04/24/2024 text/html Patient case was reviewed and linked to this encounter under D ocuments for Discussion. The patient is a {{PATIENTAGE 55#} } year old {{man woman*}} with {{type 2* type 1}} diabetes who is due for a hemoglobin A1c test. ROCKY CHOW MD [address] [place] [address],[address], [place], [address], [place] [employer] 04/24/2024 09:17:51 OBGyn Episode No OBEpisode recorded.
[2024-06-15 14:00] LABS: Hepatitis B Surface Antigen Negative (Negative)
[2024-06-15 14:06] LABS: HAV RESULT Negative (Negative); Hepatitis B Core IgM Result Negative (Negative)
[2024-06-15 14:17] LABS: Hepatitis C Virus Antibody Negative (Negative)
== END 2024-06-15 12:25 | disposition home or self-care (01) ==
LOC: ANHLAB 12:25
PROVIDERS: PCP Nurse Practitioner Adult Health; Visit Provider Nurse Practitioner Adult Health
DX: R74.8 Abnormal levels of other serum enzymes (principal)
CPT/HCPCS: 36415; 80074

== ENCOUNTER 2024-12-18 08:06 | Outpatient (CLI) | payer BC, SELFPAY ==
--- OUTSIDE RECORDS SUMMARY | 2024-12-18 08:12 | XMS_ITS | Clinical Summary ---
Author Organization [facility] Address [address] [place] [address] Care Team Providers Care Allergist Immunologist Name Role Phone Bernie Joe NP Primary Care Provider David Padilla MD Unavailable [phone] Allergies No known active allergies Medications metFORMIN [...] 5 mg/0.5 mL pen injector 3 Active cholecalciferol (VITAMIN D-3) 50,000 unit capsule Take 1 capsule (50,000 Units total) by mouth 5 Active Active Problems Problem Noted Date Diagnosed Date COVID-19 10/06/2021 Assessment & Plan (10/29/2021 2:43 PM CDT): Scheduled follow-up at [facility] post COVID, acute lung injury. Participating [...] (hyperlipidemia) 07/02/2021 Diabetes mellitus 02/18/2021 Pulmonary fibrosis Encounters Date Type Department Care Team Description 11/02/2024 8:45 AM CDT Office Visit [facility] Medicine Pulmonary [address] [facility] 8th [place] [address] [place] [address] Shlomo Cardenas MD Pulmonary fibrosis (Primary Dx); Post-COVID chronic dyspnea 11/02/2024 7:14 AM CDT - 11/02/2024 11:59 PM CDT Hospital Encounter [facility] Medicine Pulmonary [address] [facility] [address] [place] [address] Pulmonary fibrosis Discharge Disposition: Discharge to home or self care from Last 3 Months Medical History Medical History Date Comments HTN (hypertension) HLD (hyperlipidemia) DM (diabetes mellitus) History of COVID-19 10/2020 patient was hospitalized and on a ventilator for 2 weeks Neoplasm of transverse colon Family History Medical History Relation Name Comments Heart disease Father angent or Father Relation Name Status Comments Father Mother Alive Social History Tobacco Use Types Packs/Day Years Used Date Smoking Tobacco: Never Smokeless Tobacco: Never Social Connection and Isolation Panel Answer Date Recorded In a typical week, how many times do you talk on the phone with family, friends, or neighbors? More than three times a week 10/13/2021 How often do you get togethe r with friends or relatives? More than three times a week 10/13/2021 How often do you attend chur or sabianist services? More than 4 times per year 10/13/2021 Do you belong to any clubs o r organizations such as yazdanism groups, unions, fraternal or athletic groups, or [...] place to sleep or slept in a custodial (including now)? No 10/13/2021 Comments Unknown Sex and Gender Information Value Date Recorded Sex Assigned at Not on file Legal Sex Female 12:18 PM CDT Gender Identity Not on file Sexual Orientation Not on file Obstetrics History Last Filed Vital Signs Vital Sign Reading Time Taken Comments Blood Pressure 108/69 11/02/2024 8:14 AM CDT Pulse 83 11/02/2024 8:14 AM CDT Temperature 36.3 C (97.3 F) 11/02/2024 8:14 AM CDT Respiratory Rate 18 11/02/2024 8:14 AM CDT Oxygen Saturation 99% 11/02/2024 8:14 AM CDT Inhaled Oxygen Concentration - - Weight 65.8 kg (145 lb) 11/02/2024 8:14 AM CDT Height 160 cm (5' 3) 11/02/2024 8:14 AM CDT Body Mass Index 25.69 11/02/2024 8:14 AM CDT Plan of Treatment Health Maintenance [...] 07/05/2020 eGFR 10/13/2022 10/13/2021, 10/01/2021 Covid-19 Vaccine (2 - season) 2024 Influenza Vaccine (#1) 2024 Procedures Procedure Name Priority Date/Time Associated Diagnosis Comments PULMONARY FUNCTION TEST (PFT) Routine 11/02/2024 7:49 AM CDT Pulmonary fibrosis EGFR Routine 10/13/2021 5:17 AM CDT HEMOGLOBIN A1C Routine 10/01/2021 3:29 PM CDT Preop testing SCREENING MAMMOGRAM 2D BILATERAL Routine 11/05/2016 12:00 AM CDT from Last 3 Months or Most Recently Relevant to Health Maintenance Results * Pulmonary Function Test - (11/02/2024 7:49 AM CDT) FVC PRE 3.19 L [facility] FVC %PRE PRED 107 % [facility] FEV1 PRE 2.83 L [facility] FEV1 %PRE PRED 118 % [facility] FEV1/FVC PRE 88.9 % [facility] Anatomical Region Laterality Modality PFT 11/02/2024 7:25 AM CDT Narrative 11/05/2024 11:36 AM CDT Table formatting from the original result was not included. [facility] Division of Pulmonary & Critical Care Medicine [address] [place] [address]; [address] [facility]; [place] [address]; [phone] Pulmonary Function Laboratory Pulmonary Stress Test Simple/Oxygen Assessment Patient: Karina Chavez Date: 11/02/2024 : 1970 Ht: 63 IN Wt: 145 LBS Time (min) Distance (ft)/ [place] O2 L/M SpO2 HR Shankar* BP FEV1 % Pred Rest: RA 98 88 0 101/69 2.87 118 % Walk/Bike: 1 RA 98 104 0 2 RA 98 107 0 3 RA 99 102 0 4 RA 97 105 0 5 RA 97 108 0 6 min 0 sec RA 98 110 0 Recovery: 1 RA 99 98 0 104/69 2.88 120% 3 RA 99 96 0 *Shankar rate of perceived exertion (1-10 dyspnea scale) Lewis, CHEST 2003; 123:1408 Walk Test Summary: Six Minute Walk Distance: 1725 ft Six-minute Walk Work [distance (m) x body wt (kg)]: 92352 kg.m (normal >60,000kg.m) Oxygen required to maintain SpO2 greater than 90% during six minutes of walkin L/M Comments: O2A Interpretation: Breathing room air, SpO2 is normal at rest and during exercise sufficient to increase pulse, SpO2 is stable. On this basis, SpO2 is adequate at rest breathing room air and while walking breathing room air. This level of exercise is associated with no significant change of FEV1. By signing this report, the attending pulmonary physician certifies that he/she has personally reviewed and interpreted the graphic and numerical data associated with this pulmonary function study and has reviewed and /or edited a preliminary draft report and agrees with the written final report. PFT performed at:->[facility] Adult PFT Lab- [id number]-8D Procedure:->Spirometry Procedure:->Oxygen Assessment Titration Pulmonary Function Test Interpretation SPIROMETRY: Spirometry is normal. The inspiratory loop is suggestive of submaximal effort. Impression: There is no ventilatory defect. Compared with most recent study, there has been no significant interval change. The attending pulmonary physician certifies a physician presence in the [facility] during the administration of aerosolized bronchodilator. The attending pulmonary physician certifies that he/she has reviewed and interpreted the graphic and numerical data of this pulmonary function study and agrees with the written final report. The lower limit of normal for PaO2 and %HbO2 is age dependent. However, the [facility] Pulmonary Function Laboratory defines hypoxemia as a PaO2 <56 mm Hg or a %HbO2 <89%. Starting on February of 2024 the [facility] Pulmonary Function Laboratory utilizes race neutral GLI Global normative equations. us Shlomo Cardenas MD PFT ORDERABLES F inal Result * eGFR (10/13/2021 5:17 AM CDT) eGFR 105 mL/min/1. [address] [facility] Comment: Interpretive Data Reference Interval Normal [...] MD LAB BLOOD ORDERABLES Fin al Result [facility] [address] Department [place] [address] * (ABNORMAL) Hemoglobin A1c (10/01/2021 3:29 PM CDT) Hgb A1C 6.8(H) 4.0 - 5.6 % [facility] Estimated Average Glucose 148 mg/dL [facility] Comment: The ADA recommends reporting an estimated Average Glucose (eAG) with all Hemoglobin A1c results using the equation derived from a study of 507 normal and diabetic adults. Minority populations were underrepresented and children were not included. (Diabetes Care 31:5680-0787, 2008). The eAG is not equivalent to a fasting glucose. Blood 10/01/2021 3:29 PM CDT 10/01/2021 3:29 PM CDT us Lucie Contreras NP LAB BLOOD ORDERABLES Rena robins Result [facility] [address] Department [place] [address] * Screening Mammogram 2D Bilateral (11/05/2016 12:00 AM CDT) Anatomical Region Laterality Modality Breast Bilateral Mammography 11/05/2016 5:36 PM CDT Narrative 11/05/2016 5:36 PM CDT - SCREENING MAMM BI BILATERAL DIGITAL SCREENING MAMMOGRAM WITH CAD: 11/05/2016 CLINICAL: Routine screening. Routine checkup. Patient has no complaints. Comparison is made to exams dated: 07/24/2008 and 01/25/2007 [facility]. There are scattered fibroglandular elements in both [...] be contacted by letter. Davida Dias M.D. commercial escrow assistant/penrad:11/11/2016 07:36:57 copy to: Pari Garcia, ph: [phone], fax: [phone] letter sent: Normal Exam Mammogram BI-RADS: 1 Negative Radiologist: DAVIDA DIAS Attending: LUCIANO JACKSON Requesting: LUCIANO JACKSON Requesting Requesting ID: [id number] Attending Attending ID: [id number] Completed Time: 11/05/2016 12:36 AM Dictated Time: N/A Transcribed Time: 11/11/2016 08:22 AM Signed by: DAVIDA DIAS on 11/11/2016 08:22 AM Report To 1 ID: [id number] Report To 1 Name: PARI GARCIA Report [...] made to exams dated: 07/24/2008 and 01/25/2007 [facility]. There are scattered fibroglandular elements in both [...] be contacted by letter. Davida Dias M.D., cro/penrad:11/11/2016 07:36:57 copy to: Pari Paige, ph: [phone], fax: [phone] letter sent: Normal Exam Mammogram BI-RADS: 1 Negative Radiologist: DAVIDA DIAS Attending: LUCIANO JACKSON Requesting: LUCIANO JACKSON Requesting Requesting ID: [id number] Attending Attending ID: [id number] Completed Time: 11/05/2016 12:36 AM Dictated Time: N/A Transcribed Time: 11/11/2016 08:22 AM Signed by: DAVIDA DIAS on 11/11/2016 08:22 AM Report To 1 ID: [id number] Report To 1 Name: PARI GARCIA Report To 1 FAX: Report To 2 ID: Report To 2 Name: , Report To 2 FAX: Report To 3 ID: Report To 3 Name: , Report To 3 FAX: NextGen Order #: Luciano Jackson MD IMG MAMMO PROCEDURES Edited Re sult - Final from Last 3 Months or Most Recently Relevant to Health Maintenance Insurance BLUE ACCESS OOS [employer] ACCESS OOS BLUE ACCESS OOS Advance Directives For more information, please contact: [phone] * Full Code (Latest Code Status on File) Date Activated Date Inactivated Comments 10/12/2021 12:50 PM 10/14/2021 7:37 PM Care Teams Allergist Immunologist Relationship Specialty Start Date End Date eBrnie Joe NP [address] [place] [address] [place] [address] PCP - General Nurse Practitioner 07/02/21 David Padilla MD [address] [place] [address] [place] [address] Consulting Physician Colon and Rectal Surgery 10/14/21
--- OUTSIDE RECORDS SUMMARY | 2024-12-18 08:12 | XMS_ITS | Clinical Summary ---
Author Organization [facility] Administrative Offices Address [address] [place] [address] Care Team Providers Care Operations Administrative Assistant Name Role Phone Unavailable Primary Care Provider Unavailabl e Encounters Date Type Department Care Team Description 10/24/2024 External Device Data ST[facility] ABSTRACTION Provider, Abstract 10/17/2024 External Device Data [facility] ABSTRACTION Provider, Abstract 10/16/2024 External Device Data [facility] ABSTRACTION Provider, Abstract 10/11/2024 6:55 AM CDT - 10/11/2024 11:59 PM CDT Hospital Encounter [facility] Imaging Services [address] [address] Bernie Joe ANP Discharge Disposition: Home or Self Care from Last 3 Months Social History Tobacco Use Types Packs/Day Years Used Date Smoking Tobacco: Never Assessed Comments Unknown Sex and Gender Information Value Date Recorded Sex Assigned at Not on file Legal Sex Female 10:17 AM CDT Gender Identity Not on file Sexual Orientation Not on file Plan of Treatment Health Maintenance Due Date Last Done Comments DIABETES ANNUAL FOOT EXAM 1987 DIABETES ANNUAL RETINAL EXAM 1987 DIABETES MICROALBUMIN ANNUAL SCREEN 1987 LDL CHOLESTEROL ANNUAL 1987 DTAP/TDAP/TD VACCINES (1 - Tdap) 02/01/1988 HEPATITIS B VACCINES (1 of 3 - 19+ 3-dose series) 02/01/1988 HPV/Cotest (21-29) 1990 CERVICAL CANCER SCREENING 1999 HPV/Cotest (30-65) 1999 PAP SMEAR 1999 COLORECTAL SCREENING 2014 Colorectal Cancer Screening 2014 FIT-DNA Q 3 years 2014 FIT/FOBT Q 1 year 2014 Flex Sig/CT Colonography Q 5 years 2014 ZOSTER VACCINE (1 of 2) 2019 BREAST CANCER SCREENING 03/14/2021 03/14/19 21, 11/05/2016, 11/05/2016 DIABETES HBA1C Q 6 MONTHS 04/03/2022 10/01/2021, INFLUENZA VACCINE (#1) 2024 Procedures Procedure Name Priority Date/Time Associated Diagnosis Comments US ABDOMEN COMPLETE Routine 10/11/2024 7 :42 AM CDT Abdominal distention from Last 3 Months Results * US ABDOMEN COMPLETE (10/11/2024 7:42 AM CDT) Anatomical Region Laterality Modality Abdomen Ultrasound 10/11/2024 7:42 AM CDT Impressions 10/11/2024 7:49 AM CDT IMPRESSION: Fatty liver and mild hepatomegaly. Right renal cysts. Narrative 10/11/2024 7:49 AM CDT EXAM: US ABDOMEN COMPLETE STUDY DATE: 10/11/2024 7:42 AM CLINICAL INDICATION: Abdominal distention COMPARISON: none PROCEDURE: Grayscale and color Doppler sonographic images of the abdomen are obtained. FINDINGS: Liver: There is increased echogenicity of the liver parenchyma, consistent with fatty liver. The liver is enlarged measuring 18.5 cm in length. No focal lesions. There is normal hepatopedal flow in the portal vein. Gallbladder:Negative sonographic Gil's sign. No gallstones. No gallbladder wall thickening or pericholecystic fluid. Biliary tract: Measures up to 6.2 mm, which is at the upper limits of normal. Aorta: Normal IVC: Normal Pancreas: Limited visualization due to overlying bowel gas. Left kidney: Measures 10.5 cm in length. Normal echogenicity. No renal calculi. No hydronephrosis. Spleen: Normal Right kidney: Measures 10.1 cm in length. Normal echogenicity. No renal calculi. No hydronephrosis. There is a 1.9 x 0.9 x 1.4 cm peripelvic cyst in the right kidney and a 1.9 x 1.4 x 1.7 cm simple cyst in the upper pole of the right kidney. Procedure Note Cari Silva MD - 10/11/2024 EXAM: US ABDOMEN COMPLETE STUDY DATE: 10/11/2024 7:42 AM CLINICAL INDICATION: Abdominal distention COMPARISON: none PROCEDURE: Grayscale and color Doppler sonographic images of the abdomen are obtained. FINDINGS: Liver: There is increased echogenicity of the liver parenchyma, consistent with fatty liver. The liver is enlarged measuring 18.5 cm in length. No focal lesions. There is normal hepatopedal flow in the portal vein. Gallbladder:Negative sonographic Gil's sign. No gallstones. No gallbladder wall thickening or pericholecystic fluid. Biliary tract: Measures up to 6.2 mm, which is at the upper limits of normal. Aorta: Normal IVC: Normal Pancreas: Limited visualization due to overlying bowel gas. Left kidney: Measures 10.5 cm in length. Normal echogenicity. No renal calculi. No hydronephrosis. Spleen: Normal Right kidney: Measures 10.1 cm in length. Normal echogenicity. No renal calculi. No hydronephrosis. There is a 1.9 x 0.9 x 1.4 cm peripelvic cyst in the right kidney and a 1.9 x 1.4 x 1.7 cm simple cyst in the upper pole of the right kidney. IMPRESSION: Fatty liver and mild hepatomegaly. Right renal cysts. Bernie OCONNOR ORDERABLES Final Result from Last [address] [place] [address] [address] BLUE ACCESS/TRUE BLUE PPO
--- OUTSIDE RECORDS SUMMARY | 2024-12-18 08:13 | XMS_ITS | Clinical Summary ---
Author Organization [facility] Address [address] [facility] [place] [address] Care Team Providers Care Case Picker Name Role Phone Ronda Ramachandran MD Unavailable Bernie JoeSATELLITE TECHNICIAN Primary Care Provider + Source Comments [facility],non-owned Affiliates and Associated Physician Practices is amultiple site organization consisting of ambulatory clinics and hospital sitesin [place], [place], [place] and [place]. This disclosure is being madepursuant to the Care Everywhere program and may not contain all information available regarding this patient. Last updated 17.[facility] Allergies No known active allergies Medications * [...] P M CDT Height 162.6 cm (5' 4) 12/10/2020 2:32 PM CDT Body Mass Index [...] series) 02/01/1988 PNEUMOCOCCAL VACCINE 50+ (1 of 1 - PCV) 2019 ZOSTER VACCINE (1 of 2) 2019 DIABETES-FOOT EXAM WITH MONOFILAMENT 01/02/2020 DIABETES-HGB A1C 06/17/2021 12/17/2020, 02/2020, 07/05/2020, Additional history exists DIABETES-SERUM CREATININE 12/17/20212020, 11/20/2020, 11/19/2020, Additional history exists MAMMOGRAM 03/14/2022 03/14/2020 DEPRESSION SCREENING 02/29/2024 DIABETES - URINE PROTEIN SCREENING 02/29/2024 COVID-19 VACCINE () 10/29/2024 INFLUENZA VACCINE (#1) 2024 HIV SCREENING Completed 12/02/2019 (Done Outside [...] MAMMO BILAT SCREENING Routine 03/14/2020 8:00 AM MARITIME PILOT Encounter for screening breast examination HEPATITIS C ANTIBODY Routine 01/02/2020 4:19 PM MARITIME PILOT Encounter for HCV screening test for low [...] Resulting Agency Comment Lab [facility] performed at: [facility] [address] [facility] [id number] us Mili Estevez MD LAB - CHEMISTRY ORDERABLE S Final Result [facility] INSURANCE BILL [address] [place] [address] * (ABNORMAL) COMPREHENSIVE METABOLIC PANEL (12/17/2020 1:13 [...] with recommendations from the NKF-ASN Task force, [facility] the [facility] [...] Resulting Agency Comment Lab [facility] performed at: [facility] [address] [facility] [id number] us Mili Estevez MD LAB - CHEMISTRY ORDERABLE S Final Result [facility] INSURANCE BILL [address] [place] [address] * MAMMO BILAT SCREENING (03/14/2020 8:00 AM MARITIME PILOT) Anatomical Region Laterality Modality Breast Bilateral Mammography 03/14/2020 12:2 7 PM MARITIME PILOT Impressions 03/14/2020 12:32 PM MARITIME PILOT IMPRESSION: No mammographic evidence of malignancy. No change from the prior. RECOMMENDATION: Screening mammography in one year, pending no interval breast concerns. Patient will be notified of the results by lay letter. BI-RADS CATEGORY 1: NEGATIVE. This report was electronically signed by MOR OLEARY on 03/14/2020 12:32 PM . Narrative 03/14/2020 12:32 PM MARITIME PILOT EXAM: DIGITAL MAMMO BILAT SCREENING WITH 3-D [...] * HEPATITIS C ANTIBODY (01/02/2020 4:19 PM MARITIME PILOT) Hepatitis C Antibody Non-react tete Non-reac tive 01/02/2020 5:10 PM MARITIME PILOT [facility] Comment:Hepatitis C Antibody [...] Lab Venipuncture / Unknown 01/02/2020 4:19 PM MARITIME PILOT 01/02/2020 4:25 PM MARITIME PILOT Ronda Ramachandran MD LAB - CHEMISTRY ORDERABLE S Final Result [facility] [address] [place] [address], [facility] [phone] from Last 3 Months or Most Recently Relevant to Health Maintenance Insurance ANTHEM ANTHEM Care Teams Case Picker Relationship Specialty Start Date End Date Bernie Joe APRN-SATELLITE TECHNICIAN [address] [address] PCP - General 08/24/21 Ronda Ramachandran MD [address] OF [facility] [place] [address] Resident - PCP Internal Medicine 07/21/20
[2024-12-18 19:28] LABS: Alanine Aminotransferase 48 U/L (6-35); Albumin Level 4.5 g/dL (3.5-5.1); Alkaline Phosphatase 87 U/L (38-126); Anion Gap 8 mmol/L (4-12); Aspartate Amino Transferase 83 U/L (14-36); Bilirubin,Total 0.5 mg/dL (0.2-1.3); Blood Urea Nitrogen 14 mg/dL (7-17); Calcium 9.7 mg/dL (8.4-10.2); Carbon Dioxide 29 mmol/L (22-30); Chloride 103 mmol/L (98-107); Cholesterol 172 mg/dL (0-200); Estimated Glomerular Filt Rate > 60; Glucose 102 mg/dL (65-110); HDL Direct 46 mg/dL; Potassium 4.6 mmol/L (3.4-5.0); Sodium 140 mmol/L (137-145); Total Protein 7.6 g/dL (6.3-8.2); Triglycerides 206 mg/dL (<150)
[2024-12-18 20:05] LABS: MALB Creatinine Ratio 16.8 mg/g (0-30)
[2024-12-18 21:49] LABS: Hemoglobin A1C 5.4 % (<5.7)
== END 2024-12-18 08:07 | disposition home or self-care (01) ==
LOC: ANHBWCLAB 08:07
PROVIDERS: PCP Nurse Practitioner Adult Health; Visit Provider Nurse Practitioner Adult Health
DX: E55.9 Vitamin D deficiency, unspecified (principal); E11.9 Type 2 diabetes mellitus without complications; I10 Essential (primary) hypertension
CPT/HCPCS: 36415; 80053; 80061; 82043; 82306; 82565; 83036

== ENCOUNTER 2024-12-29 09:05 | Outpatient (CLI) | payer BC, SELFPAY ==
--- NOTE | ~2024-12-29 | CT_ITS ---
EXAMINATION: CT abdomen pelvis wo con DATE: 12/29/2024 09:25 INDICATION: Cyst of kidney, acquired. TECHNIQUE: Computed tomography (CT) of the abdomen and pelvis was performed without intravenous contrast. Automated exposure control and iterative reconstruction technique were employed. The dose-length product was 312.06 mGy-cm. COMPARISON: Chest CT 10/01/2021 FINDINGS: The visualized portions of the lung bases demonstrate mild atelectasis and mild chronic lung disease. A calcified right lung nodule is consistent with old granulomatous disease. No pleural effusion. The heart size is normal. No pericardial effusion. The liver, gallbladder, spleen, pancreas, adrenal glands, and kidneys are normal. There is no urolithiasis. There is diverticulosis of the colon without evidence of diverticulitis. There are changes of right hemicolectomy. There are no pathologically enlarged lymph nodes. There is no free intraperitoneal fluid. There is moderate thoracic spondylosis and severe lower lumbar spondylosis. There are chronic bilateral L5 pars defects. There is 7 mm anterolisthesis of L5 on S1. IMPRESSION: 1. Normal kidneys. Reviewed, dictated and finalized at location E. TRO MECHANICAL DESIGNER IMPRESSION: 1. Normal kidneys.
== END 2024-12-29 09:06 | disposition home or self-care (01) ==
PROVIDERS: PCP Nurse Practitioner Adult Health; Visit Provider Nurse Practitioner Adult Health
DX: N28.1 Cyst of kidney, acquired (principal)
CPT/HCPCS: 74176